=== PATIENT | female | born 1960 | race Caucasian/White ===

== ENCOUNTER 2019-07-16 16:00 | Inpatient (IN) ==
[2019-07-16 20:07] LABS: Basophils # (Auto) 0 K/mcL (0.0-0.3); Basophils % (Auto) 0.4 % (0.0-2.0); Eosinophils # (Auto) 0.2 K/mcL (0.0-0.7); Eosinophils % (Auto) 4.2 % (0.0-7.0); Granulocytes % (Auto) 53.3 % (38.0-78.0); Hematocrit 35.5 % (36.0-48.0); Hemoglobin 11.8 g/dL (12.0-15.0); Lymphocytes # (Auto) 1.8 K/mcL (1.5-4.8); Lymphocytes % (Auto) 31.7 % (15.5-49.0); Mean Cell Volume 93.3 fL (80.0-100.0); Mean Corpuscular HGB Conc 33.2 g/dL (31.0-36.0); Mean Platelet Volume 7.4 fL (7.4-10.4); Monocytes # (Auto) 0.6 K/mcL (0.1-0.9); Monocytes % (Auto) 10.4 % (1.0-12.0); Platelet Count 205 K/mcL (140-440); RBC 3.81 M/mcL (4.00-5.20); Red Cell Distribution Width 15.4 % (11.5-14.5); WBC 5.7 K/mcL (4.5-11.0)
[2019-07-16 20:09] LABS: Appearance,Urine CLEAR; Bacteria,Urine 0 /hpf (0); Bilirubin,Urine NEG (NEG); Color,Urine YELLOW; Culture Indicated,Urine YES; Glucose,Urine (UA) NEGATIVE (NEG); Ketones,Urine NEG (NEG); Leukocyte Esterase,Urine 500 /uL (NEG); Nitrate,Urine NEG (NEG); Protein,Urine NEG (NEG); Specific Gravity,Urine 1.021 (1.000-1.035); Urine Blood NEG mg/dL (<0.03); Urine Hyaline Cast 1 /lpf (0-2); Urine RBC 2 /hpf (0-1); Urine Squamous Epithelial Cell 4 /hpf (0-4); Urine Transitional Epi Cells 1 /hpf (0-2); Urine WBC 38 /hpf (0-4); Urobilinogen,Urine NEG (NEG)
[2019-07-16 20:26] LABS: Blood Urea Nitrogen 22 mg/dl (8-23); Calcium 9.6 mg/dl (8.6-10.4); Carbon Dioxide 25 mmol/L (22-30); Chloride 99 mmol/L (96-108); Glomerular Filtration Rate 69; Glucose 157 mg/dL (70-105)
[2019-07-16 20:29] LABS: Estimated Average Glucose(eAG) 171 mg/dL; Hemoglobin A1C 7.6 % HGB (4.0-6.0)
[2019-07-16 20:34] LABS: Prothrombin Time 12.7 sec (11.9-14.5)
[2019-07-28] MEDS ORDERED: oxyCODONE 10 MG TAB.ER.12H PO SCH (06:00)
[2019-07-28] MEDS ORDERED: ceFAZolin 2 GM in DEXTROSE 5% IN WATER 50 ML IV SCH (06:00)
[2019-07-28] MEDS ORDERED: CELECOXIB 200 MG CAPSULE PO SCH (06:00)
[2019-07-28] MEDS ORDERED: PREGABALIN 75 MG CAPSULE PO SCH (06:00)
[2019-07-28] MEDS ORDERED: ACETAMINOPHEN 500 MG TABLET PO SCH (06:00)
[2019-07-28] MEDS ORDERED: IPRATROPIUM/ALBUTEROL 3 ML AMPUL.NEB NEB PRN ×2 (06:30→10:28)
[2019-07-28] MEDS ORDERED: SCOPOLAMINE 1 PATCH PATCH TOPICAL PRN (06:30)
[2019-07-28] MEDS ORDERED: MIDAZOLAM 5 MG/5 ML VIAL IV ONE (09:20)
[2019-07-28] MEDS ORDERED: METOPROLOL TARTRATE 5 MG/5 ML VIAL IV ONE (09:20)
[2019-07-28] MEDS ORDERED: ONDANSETRON 4 MG/2 ML VIAL IV ONE (09:20)
[2019-07-28] MEDS ORDERED: ROPIVACAINE HCL/PF 30 ML VIAL IJ ONE (09:20)
[2019-07-28] MEDS ORDERED: LIDOCAINE HCL/PF 100 MG/5 ML SYRINGE IV ONE (09:20)
[2019-07-28] MEDS ORDERED: fentaNYL 100 MCG/2 ML VIAL IV ONE (09:20)
[2019-07-28] MEDS ORDERED: FLUMAZENIL 0.1 MG/ML ML IV ONE (09:20)
[2019-07-28] MEDS ORDERED: PROPOFOL 200 MG/20 ML VIAL IV ONE (09:20)
[2019-07-28] MEDS ORDERED: GLYCOPYRROLATE 0.2 MG/ML VIAL IV ONE (09:20)
[2019-07-28] MEDS ORDERED: DEXAMETHASONE 10 MG/ML VIAL IV ONE (09:20)
[2019-07-28] MEDS ORDERED: ROCURONIUM 10 MG/ML ML IV ONE (09:20)
[2019-07-28] MEDS ORDERED: TRANEXAMIC ACID 1,000 MG/10 ML VIAL IV ONE ×2 (09:20→10:30)
[2019-07-28] MEDS ORDERED: KETAMINE 100 MG/ML ML IV ONE (09:20)
[2019-07-28] MEDS ORDERED: METHOCARBAMOL 1,000 MG/10 ML VIAL IV PRN (10:28)
[2019-07-28] MEDS ORDERED: MEPERIDINE 25 MG/ML SYRINGE IV PRN (10:28)
[2019-07-28] MEDS ORDERED: ONDANSETRON 4 MG/2 ML VIAL IV PRN ×2 (10:28→10:30)
[2019-07-28] MEDS ORDERED: fentaNYL 100 MCG/2 ML VIAL IV PRN (10:28)
[2019-07-28] MEDS ORDERED: ACETAMINOPHEN 325 MG TABLET PO PRN (10:30)
[2019-07-28] MEDS ORDERED: FLEETS ADULT ENEMA PR PRN (10:30)
[2019-07-28] MEDS ORDERED: KETOROLAC 15 MG/ML VIAL IV PRN (10:30)
[2019-07-28] MEDS ORDERED: MAGNESIUM HYDROXIDE 30 ML ORAL.SUSP PO PRN (10:30)
[2019-07-28] MEDS ORDERED: BENZOCAINE/MENTHOL 1 LOZENGE PO PRN (10:30)
[2019-07-28] MEDS ORDERED: HYDROmorphone 2 MG/ML VIAL IV PRN (10:30)
[2019-07-28] MEDS ORDERED: TEMAZEPAM 15 MG CAPSULE PO PRN (10:30)
[2019-07-28] MEDS ORDERED: POLYETHYLENE GLYCOL 3350 17 GM PACKET PO PRN (10:30)
[2019-07-28] MEDS ORDERED: LACTATED RINGERS 1,000 ML IV SCH (10:30)
[2019-07-28] MEDS ORDERED: BISACODYL 10 MG SUPP.RECT PR PRN (10:30)
[2019-07-28] MEDS ORDERED: METHOCARBAMOL 500 MG TABLET PO PRN (10:34)
[2019-07-28] MEDS ORDERED: LORazepam 0.5 MG TABLET PO PRN (10:34)
--- NOTE | 2019-07-28 10:37 | Brief Operative Note ---
Date of procedure: 07/28/19 Pre-op diagnosis: Right shoulder severe djd Post-op diagnosis: same Procedure: Right reverse tsa Grafts/Implants: Yes Anesthesia: MIRNA Surgeon: Amadeo Prieto Bath Attendant: Royal Barksdale Estimated blood loss (cc): 50 Tourniquet Time (Minutes): 0 Specimens Removed/Pathology: none sent Condition: stable Disposition: PACU
--- NOTE | 2019-07-28 10:41 | Operative Note ---
DATE OF OPERATION: 07/28/2019 PREOPERATIVE DIAGNOSIS: Right shoulder rotator cuff arthropathy. POSTOPERATIVE DIAGNOSIS: Right shoulder rotator cuff arthropathy. PROCEDURE: Right reverse total shoulder. SURGEON: Amadeo Prieto MD EVP GENERAL COUNSEL: oRyal Barksdale PA-C. This provider's expertise and technical skill were required throughout the case. The PA assisted with preoperative coordination, intraoperative retraction, wound closure, dressing and splint application, as well as postoperative documentation and care coordination. ANESTHESIA: General LMA anesthesia. COMPLICATIONS: None. Bone quality is poor. IMPLANTS: Size 32 mm glenosphere, metaglene with screws per nurse's note, 7 mm stem with a standard thickness polyethylene. DESCRIPTION OF PROCEDURE: The patient was brought to the operating room and put to sleep with general LMA anesthesia. Once asleep, the patient had the right shoulder sterilely prepped and draped in the usual sterile fashion. Once this was done, we then confirmed this as the operative site by initials, consent form and x-rays. Preop antibiotics and tranexamic had been given. We placed Ioban over the skin and made a deltopectoral approach to the right shoulder. This showed severe rotator cuff arthropathy with severe arthritis in the glenohumeral joint, as well as a torn supraspinatus and into the teres minor. At this point, we then subluxed the humeral head after releasing the remnants of the subscap. We made our neck cut at 130 degrees using the Clever Cloud guide. Once done, we then subluxed the head posteriorly and then reamed the center of rotation in the glenoid and removed the labrum and the remnants of the biceps tendon were released. We then placed the metaglene which was a central screw of 24 mm, a 16 peripheral screw, 32 peripheral screw and a 28 mm peripheral screw with excellent fixation. A 32 mm glenosphere with 2 mm of offset was placed. Once done, we then tapped this into place and prepared the humerus. The humerus was then prepared by broaching up to the size 7, trialing a size 7 standard poly. This seemed to fit very nicely with full range of motion and stability. We irrigated thoroughly and cemented the distal tip of the [address] with antibiotic impregnated cement and then a standard thickness poly. This seemed to fit very nicely. We irrigated thoroughly and then reduced the humeral head. We then controlled any bleeding, which there was not a lot of bleeding, less than 50 mL total. We then closed the interval with #1 Stratafix, closed the skin with 2-0 Vicryl and adhesive closure. The patient was fitted and given a DonJoy sling at the end of the case. There was no complication. Sterile bandage was applied. RBH:alice Job ID: [id number] Doc ID: [id number] Amadeo Prieto MD
[2019-07-28] MEDS ORDERED: GENTAMICIN SULFATE 800 MG/20 ML VIAL IR ONE (10:44)
[2019-07-28] MEDS ORDERED: NALOXONE HCL 0.4 MG/ML VIAL IV ONE (11:39)
[2019-07-28] MEDS ORDERED: NALOXONE HCL 0.4 MG/ML VIAL ONE (11:39)
--- NOTE | 2019-07-28 11:48 | XRay Report ---
CLINICAL INFORMATION: Post-OP Total Shoulder COMPARISON: Preoperative films 12/23/2018 FINDINGS: Right total shoulder prostheses is anatomically aligned. No osseous abnormality. Soft tissue swelling seen as expected IMPRESSION: Negative Interpreted and Authenticated by: Lambert Simon 07/28/19
[2019-07-28] MEDS: LACTATED RINGERS 1,000 ML IV SCH ×3 (12:29→23:29)
[2019-07-28] MEDS: metFORMIN 500 MG TABLET PO SCH ×2 (14:14→17:27)
[2019-07-28] MEDS: 0.9 % SODIUM CHLORIDE 10 ML SYRINGE IV SCH ×2 (14:18→21:05)
[2019-07-28] MEDS: ceFAZolin 1 GM VIAL IV SCH (17:27)
[2019-07-28] MEDS: HYDROcodone/APAP 10/325MG TABLET PO PRN (19:23)
[2019-07-28] MEDS ORDERED: SENNOSIDES 1 TABLET PO SCH (21:00)
[2019-07-28] MEDS ORDERED: SIMVASTATIN 40 MG TABLET PO SCH (21:00)
[2019-07-28] MEDS ORDERED: AMITRIPTYLINE 10 MG TABLET PO SCH (21:00)
[2019-07-28] MEDS ORDERED: MONTELUKAST 10 MG TABLET PO SCH (21:00)
[2019-07-28] MEDS ORDERED: Anastrozole [Arimidex] 1 mg Tab PO SCH (21:00)
[2019-07-28] MEDS: DOCUSATE SODIUM 100 MG CAPSULE PO SCH (21:04)
[2019-07-28] MEDS: ALPHA LIPOIC ACID 300 MG PO SCH (21:05)
[2019-07-29] MEDS: HYDROcodone/APAP 10/325MG TABLET PO PRN ×3 (00:10→10:12)
[2019-07-29] MEDS: ceFAZolin 1 GM VIAL IV SCH (01:40)
[2019-07-29] MEDS: 0.9 % SODIUM CHLORIDE 10 ML SYRINGE IV SCH (05:24)
[2019-07-29] MEDS: LACTATED RINGERS 1,000 ML IV SCH (06:44)
[2019-07-29] MEDS ORDERED: OMEPRAZOLE 20 MG CAPSULE PO SCH (07:30)
[2019-07-29] MEDS: HYDROCHLOROTHIAZIDE 25 MG TABLET PO SCH ×2 (07:41→11:13)
[2019-07-29] MEDS: metFORMIN 500 MG TABLET PO SCH (07:41)
[2019-07-29] MEDS: DOCUSATE SODIUM 100 MG CAPSULE PO SCH (07:42)
--- NOTE | 2019-07-29 07:42 | Orthopedic Progress Note ---
Subjective Patient information: Note initiated : 07/29/19 at 7:42 am Service Date, if different from initiated Date: [] Patient: Jacquelin Benoit 59 y/o F admitted on 07/28/19 for Right Reverse Total Shoulder Arthroplasty . Chief Complaint: [Pt is stable this morning on post operative day 1 without any significant concerns or complaints. Patients vital signs have remained stable. Patients dressing is dry and is grossly intact from a neur ovascular and motor standpoint. Patients 10 point ROS is otherwise negative. ] Objective Vital signs: Vital Signs Temp Pulse Resp BP Pulse Ox 07/29/19 04:47 97.5 F 91 H 18 124/73 92 07/28/19 23:38 97.9 F 20 101/71 91 07/28/19 19:22 97.8 F 90 20 116/70 94 07/28/19 16:00 97.8 F 73 18 111/73 95 07/28/19 14:20 97.8 F 80 18 158/80 97 07/28/19 13:20 81 16 169/83 97 07/28/19 13:05 76 16 164/82 96 07/28/19 12:50 83 16 162/99 94 07/28/19 12:35 81 16 155/82 94 07/28/19 12:20 97.6 F 84 16 147/79 94 07/28/19 12:05 98.2 F 90 19 123/73 91 07/28/19 12:02 88 17 136/82 90 07/28/19 11:52 88 18 125/77 90 07/28/19 11:42 84 16 111/71 96 07/28/19 11:32 88 15 116/63 96 07/28/19 11:22 79 14 110/62 98 07/28/19 11:12 78 14 105/61 99 07/28/19 11:07 79 15 98/65 100 07/28/19 11:02 84 15 122/83 100 07/28/19 10:57 97.1 F 85 14 107/65 98 07/28/19 07:52 98.0 F 88 16 128/77 100 Intake and Output 07/28/19 07/29/19 07/29/19 21:59 05:59 13:59 Intake Total 1620 1540 Output Total 2150 650 Balance -530 890 Intake: IV 420 1000 Lactated Ringers 1,000 ml @ 724 284 5152 mls/hr IV .Q10H RYANN Rx#: [id number] Oral 1200 540 Output: Void Amount 2150 650 Other: Meal Dinner Nourishment/Supplement Percent of Meal Consumed 100% 100% Feeding Ability Assist with Tray Set Up Independent Urine Appearance Clear Clear Urine Color Bright Yellow Bright Yellow Urine Odor Normal Normal Weight 178 lb 4.8 oz Intake & Output: Intake & Output 07/28/19 07/29/19 07/29/19 21:59 05:59 13:59 Intake Total 1620 1540 Output Total 2150 650 Balance -530 890 Weight 178 lb 4.8 oz Intake: IV 420 1000 Lactated Ringers 1,000 ml @ 817 808 5804 mls/hr IV .Q10H RYANN Rx#: [id number] Oral 1200 540 Output: Void Amount 2150 650 Other: Meal Dinner Nourishment/Supplement Percent of Meal Consumed 100% 100% Feeding Ability Assist with Tray Set Up Independent Urine Appearance Clear Clear Urine Color Bright Yellow Bright Yellow Urine Odor Normal Normal Incision: Yes healing Incision clean and dry: Yes Dressing: Yes clean Weight bearing status: full Neurological exam IM: Yes motor sensory intact, Yes neurovascular intact Extremities exam IM: Yes Foot pink and warm, Yes neurovascular intact - Labs CBC & BMP: 07/16/19 17:11 07/16/19 17:11 Labs: Orthopedic Labs 07/16/19 17:10 PT 12.7 INR 1.0 APTT 29 07/16/19 17:11 Hgb 11.8 L Hct 35.5 L Assessment and Plan (1) History of reverse total replacement of right shoulder joint The patient has been educated regarding dressing care, Physical Therapy recommendations, home exercises, restrictions, and follow up appointments. The patient has had all necessary DME prescribed. The patient has remained relatively stable during their hospital course. Status: Acute
--- NOTE | 2019-07-29 07:45 | Discharge Summary ---
Ortho Discharge - TSA - Patient Instructions Diet: Regular Diet Activity: activity as tolerated, weight bearing as tolerated Total Shoulder Protocol: Leave immobilizer in place except for bathing and ROM. Abduction pillow. Continue to wear sling until seen by physician. Codman Pendulum : These exercises use momentum produced by your body to move your shoulder joint. Bend your knees and shift your weight to your front leg, then back, allowing your arm to swing in the same directions. Using the same technique, alternately shift your weight between your right and left legs, allowing your arm to swing from side to side. These exercises are also performed in counterclockwise and clockwise circular motions. Typically these exercises are performed several times per day, for a set number repetitions or minutes, such as 20 times in a row or 5 minutes at a time. Dressing Care: May shower in 2 days - Problem Maintenance (1) History of reverse total replacement of right shoulder joint Status: Acute - Follow Up Plan Follow Up Appointments: Royal Barksdale PA-C [Physician Ground Support Equipment Mechanic] - Disposition: Home, Self-Care Prognosis: Good Rehab Potential: Good I certify that the patient requires SNF services: No Overall status at discharge: patient is progressing back to baseline - Orders For Discharge Prescriptions: Docusate Sodium [Colace] 100 mg PO BID #60 cap Transmission Status: Pending to [facility] HYDROcodone/APAP 10/325MG [[place] 10-325Mg] 1 - 2 tab PO Q4HP PRN #75 tab PRN Reason: Pain Level 3-6 Prescription Printed
[2019-07-29] MEDS ORDERED: FOLIC ACID 1 MG TABLET PO SCH (09:00)
[2019-07-29] MEDS ORDERED: LOSARTAN 50 MG TABLET PO SCH (09:00)
[2019-07-29] MEDS ORDERED: VITAMIN B COMPLEX 1 CAPSULE PO SCH (09:00)
[2019-07-29] MEDS ORDERED: DULoxetine 30 MG CAPSULE PO SCH (09:00)
[2019-07-29] MEDS: ALPHA LIPOIC ACID 300 MG PO SCH (10:14)
== END 2019-07-29 11:25 | disposition home or self-care (01) | DRG 483 ==
LOC: MEDSUR 07-28 07:08
PROVIDERS: ADMIT Orthopaedic Surgery; ATTEND Orthopaedic Surgery

== ENCOUNTER 2020-12-30 22:08 | Inpatient (IN) ==
[2020-12-30] MEDS ORDERED: IOPAMIDOL 100 ML BOTTLE IV ONE (22:09)
[2020-12-30] MEDS ORDERED: KETOROLAC 30 MG/ML VIAL IV ONE (22:37)
[2020-12-30] MEDS ORDERED: ONDANSETRON 4 MG/2 ML VIAL IV ONE (22:37)
--- NOTE | 2020-12-30 22:41 | Emergency Department Note ---
Abdominal Pain HPI General Chief Complaint: Flank Pain Stated Complaint: Flank Pain Time Seen by Provider: 12/30/20 22:34 Source: patient Mode of arrival: ambulatory Limitations: no limitations History of Present Illness HPI Narrative: Narrative: Presents to room E2 for evaluation of right flank and right upper quadrant pain. Patient reports that she had sudden onset of pain about 1999 while sitting on the sofa. She states that she had eaten meatloaf with cheese and hamburger approximately 30 minutes prior to arrival. She reports associated nausea with vomiting. No change in urination, no change in bowel habits. She denies fevers or chills. Symptoms are constant. She denies any exacerbating or alleviating factors. Related Data Home Medications Medication Instructions Recorded Confirmed blood sugar diagnostic 02/10/15 12/09/20 lancets 02/10/15 12/09/20 alpha lipoic acid 50 mg capsule 300 mg PO BID cap 08/02/17 12/09/20 amitriptyline 10 mg tablet 10 mg PO HS tab 08/02/17 12/09/20 vitamin B complex 1 tab PO QDAY 08/02/17 12/09/20 duloxetine 60 mg capsule,delayed 60 mg PO DAILY cap 07/19/18 12/09/20 release anastrozole 1 mg PO HS 12/20/18 12/09/20 lorazepam 0.5 mg PO BIDP PRN 07/16/19 12/09/20 cholecalciferol (vitamin D3) 25 25 mcg PO BID cap 11/26/19 12/09/20 mcg (1,000 unit) capsule dha-phosphatidylserine See Rx Instructions PO QDAY 11/26/19 12/09/20 magnesium oxide 400 mg (241.3 mg 400 mg PO QDAY 11/26/19 12/09/20 magnesium) tablet apple cider vinegar 300 mg tablet 300 mg PO BID tab 07/02/20 12/09/20 vitamin E 400 unit capsule 400 unit PO BID 07/27/20 12/09/20 Liver tone 300 mg PO QDAY 08/17/20 12/09/20 cinnamon bark 500 mg capsule 500 mg PO QDAY 11/01/20 12/09/20 Previous Rx's Medication Instructions Recorded albuterol sulfate 90 mcg/actuation 2 puff INHALATION Q6H PRN #18 g 11/11/19 aerosol inhaler hydrochlorothiazide 25 mg tablet 25 mg PO QDAY #90 tab 04/06/20 methocarbamol 500 mg tablet 500 mg PO TID PRN #30 tab 07/02/20 montelukast 10 mg tablet 10 mg PO QHS #90 tab 08/31/20 phenylephrine 0.25 %-pramoxine 1 1 applic MD BID #51 g 11/11/20 %-glycerin-wh.petrolatum rectal cream rosuvastatin 10 mg tablet 10 mg PO HS #60 tab 11/17/20 nitrofurantoin 100 mg PO Q12H 5 Days #10 cap 11/24/20 monohydrate/macrocrystals 100 mg capsule metformin 500 mg tablet 1,000 mg PO BID 90 Days #360 tab 11/25/20 losartan 50 mg tablet 50 mg PO QDAY #90 tab 12/01/20 omeprazole 20 mg capsule,delayed 20 mg PO QDAY #90 cap 12/23/20 release Allergies Allergy/AdvReac Type Severity Reaction Status Date / Time diphenhydramine Allergy Mild Hives Verified 12/30/20 22:11 [From Benadryl] Sulfa (Sulfonamide Allergy Mild Rash Verified 12/30/20 22:11 Antibiotics) midazolam [From Versed] AdvReac Severe Other Verified 12/30/20 22:11 Review of Systems ROS ROS Narrative: Narrative: All systems ED: reviewed and negative except as stated. [facility] Narrative Patient History Narrative: Narrative: Medical/Surgical/Family History All Active Problems (Updated 12/31/20 @ 04:58 by Fazal Clifford MD) Acute flank pain (Acute) UTI (urinary tract infection) (Acute) Ureterolithiasis (Acute) Pancreatitis (Acute) Severe sepsis (Acute) Right foot strain (Acute) Right foot injury (Acute) Dysuria (Acute) Breast disorder (Chronic) Colonic polyp (Chronic) Degeneration of cervical disc without myelopathy (Chronic) Type 2 diabetes mellitus (Chronic ~2010) Gastroesophageal reflux (Chronic) Hyperlipidemia (Chronic) Hypertension, essential (Chronic) Irritable bowel syndrome (Chronic) Menopausal and postmenopausal disorder (Chronic) Osteopenia (Chronic) Spondylosis of cervical spine (Chronic) Vitamin D deficiency (Chronic) CKD (chronic kidney disease), stage III (Chronic) Hypertensive renal disease (Chronic) Calculus of kidney (Chronic) Fibromyalgia (Chronic) Erosive osteoarthritis (Chronic) Dermatitis (Chronic) Chondrocalcinosis (Chronic) Conjunctivitis, left eye (Acute) Chest wall pain (Acute) Right shoulder pain (Acute) Shoulder strain (Acute) 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) Lower extremity edema (Acute) Chronic kidney disease (CKD) stage G2/A1, mildly decreased glomerular filtration rate (GFR) between 60-89 mL/min/1.73 square meter and albuminuria creatinine ratio less than 30 mg/g (Chronic) Right wrist pain (Acute) Strain of wrist, right (Acute) Mild obstructive sleep apnea (Acute) Low back pain (Acute) Sleep disorder, unspecified (Chronic) Obstructive sleep apnea (Chronic) Transaminitis (Acute) CKD (chronic kidney disease) (Acute) Acute adjustment disorder with anxiety (Acute) CKD stage G3a/A1, GFR 45-59 and albumin creatinine ratio <30 mg/g (Acute) Medical History Acute adjustment disorder with anxiety Breast cancer s/p lumpectomy and radiation therapy Breast disorder FCBC Calculus of kidney Chondrocalcinosis Of multiple sites, chronic CKD (chronic kidney disease) CKD (chronic kidney disease), stage III Doubt DM due to lack of proteinuria Same reasons to doubt GN associated with rheumatalogic issue or malignancy HTN is likely and BP is well controlled Closed fracture of toe Colonic polyp Degeneration of cervical disc without myelopathy Dermatitis Dysuria Erosive osteoarthritis Chronic Fibromyalgia Chronic Gastroesophageal reflux Hyperlipidemia Hypertension, essential diagnosed in her 30s Hypertensive renal disease Irritable bowel syndrome Knee sprain Low back pain Menopausal and postmenopausal disorder Mild obstructive sleep apnea Obstructive sleep apnea Osteopenia Right foot injury Right foot strain Sleep disorder, unspecified Spondylosis of cervical spine Lumbar Transaminitis Type 2 diabetes mellitus (~2010) Vitamin D deficiency Surgical History H/O joint replacement hand- R [facility] H/O lumpectomy History of arthroscopy of right knee History of breast biopsy History of X3 History of carpal tunnel release R History of hysterectomy L SO History of right knee joint replacement Status post lumbar spinal fusion Family History Father , at 80y Atherosclerosis of coronary artery Diabetes mellitus Essential hypertension affecting in second trimester, antepartum Mother Essential hypertension Cerebrovascular accident Unknown Hyperlipidemia Sister Renal stones Social History Smoking Status: Never smoker Alcohol Intake Frequency: holiday/special occasion only Substance Use: does not use Exam Narrative Narrative: Narrative: General Limitations: no limitations General appearance: Present alert and in no apparent distress Head Head: Present atraumatic, normocephalic and normal inspection Eye Eye: Present normal appearance and EOMI; Absent conjunctival injection ENT ENT: Present normal exam and mucous membranes moist Neck Neck: Present normal inspection and trachea midline Respiratory Respiratory: Present normal lung sounds bilaterally; Absent respiratory distress Cardiovascular Cardiovascular: Present regular rate, normal rhythm and normal heart sounds Adbominal Abdominal: Present soft and tenderness (Moderate tenderness to palpation primarily in the right upper quadrant extending into the right flank.); Absent distention, guarding and rebound Extremities Extremities: Present normal inspection; Absent tenderness Back Back: Present normal inspection and CVA tenderness (R); Absent tenderness and CVA tenderness (L) Neurological Neurological: Present alert, oriented X3 and CN II-XII intact; Absent motor sensory deficit Psychiatric Psychiatric: Present normal affect and normal mood Skin Skin: Present warm (WNL) and dry; Absent rash Course Vital Signs Vital signs: Vital Signs Temperature 98.1 F 12/30/20 22:08 Pulse Rate 78 12/30/20 22:08 Respiratory Rate 18 12/30/20 22:08 Blood Pressure 190/80 12/30/20 22:08 Pulse Oximetry (%) 100 12/30/20 22:08 Temperature 98.1 F 12/30/20 22:08 Pulse Rate 111 H 12/31/20 02:01 Respiratory Rate 18 12/30/20 22:08 Blood Pressure 180/98 12/31/20 02:01 Pulse Oximetry (%) 97 12/31/20 02:01 [facility] Narrative Medical decision making narrative: Narrative: Patient presents for evaluation of acute onset of pain primarily in the right upper quadrant but also extending into the right flank. This came on after eating meat loaf and originally I consider the possibility this may represent acute biliary colic. The patient did not report any symptoms of fever or suggestion of infection. Her white blood cell count is normal but she is noted to be tachycardic. Her symptoms were treated with IV analgesics and antiemetics as well as IV fluid initially. Her BUN and creatinine is slightly elevated at 29 and 1.3. The patient's lipase is also slightly elevated at 131. I did attempt to obtain an ultrasound of the gallbladder however the services are not available at this time of the night. CT scan was also obtained and showed no evidence of biliary disease. There is noted to be right-sided hydroureteronephrosis with an obstructing 3 x 5 mm proximal ureteral stone. The patient's urinalysis is consistent with UTI. As t he patient's creatinine is slightly elevated with infection and ureteral stone I was concerned the patient may have impending sepsis. Blood cultures and lactic acid were obtained. Patient was given a dose of IV Rocephin. The patient's lactic acid has come back at 3.6 consistent with severe sepsis. I have made multiple attempts to contact Dr. Ortiz the on-call urologist initially without success. I did engage the house mover to assist in contacting Dr. Ortiz I did speak with him at approximately 0445. He is asked that I engage the hospitalist, Dr. Field in the patient's care. Lab Data Lab results reviewed: Yes I reviewed the patient's lab results. Result diagrams: 12/30/20 22:37 12/30/20 22:37 Labs: Lab Results 12/30/20 12/30/20 12/30/20 Range/Units 22:37 22:37 23:50 WBC 9.7 (4.5-11.0) K/mcL RBC 4.05 (4.00-5.20) M/mcL Hgb 11.5 L (12.0-15.0) g/dL Hct 35.1 L (36.0-48.0) % MCV 86.7 (80.0-100.0) fL MCH 28.4 (26.0-34.0) pg MCHC 32.8 (31.0-36.0) g/dL RDW 13.8 (11.5-14.5) % Plt Count 214 (140-440) K/mcL MPV 9.7 (7.4-10.4) fL Neut % (Auto) 70.7 (38.0-78.0) % Lymph % (Auto) 21.1 (15.0-49.0) % Granite % (Auto) 5.2 (1.0-12.0) % Eos % (Auto) 2.8 (0.0-7.0) % Baso % (Auto) 0.2 (0.0-2.0) % Lymph # (Auto) 2.04 (1.50-4.80) K/mcL Granite # (Auto) 0.50 (0.10-0.90) K/mcL Eos # (Auto) 0.27 (0.00-0.70) K/mcL Baso # (Auto) 0.02 (0.00-0.20) K/mcL Absolute Neutrophils 6.85 (1.80-8.00) K/mcL Sodium 134 (133-145) mmol/L Potassium 4.2 (3.3-5.1) mmol/L Chloride 96 (96-108) mmol/L Carbon Dioxide 25 (22-30) mmol/L Anion Gap 13.0 (8.0-16.0) BUN 29 H (8-23) mg/dL Creatinine 1.3 H (0.6-1.1) mg/dL GFR Calculation 44 Glucose 197 H (70-105) mg/dL Calcium 9.9 (8.6-10.4) mg/dL Total Bilirubin 0.5 (0.1-1.0) mg/dL AST 21 (<32) U/L ALT 24 (<40) U/L Alkaline Phosphatase 104 (39-117) U/L Total Protein 7.0 (5.9-8.4) gm/dL Albumin 4.2 (3.2-5.2) gm/dL Globulin 2.8 (2.2-3.7) gm/dL Albumin/Globulin Ratio 1.5 (1.0-2.3) Lipase 131 H (7-60) U/L Urine Color Yellow Urine Appearance Cloudy A (Clear) Urine pH 6.0 (5.0-9.0) Ur Specific [place] 1.017 (1.000-1.035) Urine Protein 30 A (Negative) mg/dL Urine Glucose (UA) Negative (Negative) mg/dL Urine Ketones Negative (Negative) mg/dL Urine Occult Blood 0.20 (Negative) mg/dL Urine Nitrate Pos A (Negative) Urine Bilirubin Negative (Negative) mg/dL Urine Urobilinogen Negative mg/dL Ur Leukocyte Esterase 250 A (Negative) /ug Urine RBC 108 H (0-3) /hpf Urine WBC > 182 H (0-4) /hpf Ur Squamous Epith Cells 1 (0-4) /hpf Ur Transition Epith Cell < 1 (0-2) /hpf Urine Bacteria Few A (0) /hpf Urine Mucus Few A (None) /hpf Ur Culture Indicated? yes Radiology Data Radiology results reviewed: Yes I reviewed the patient's radiology results. EKG Data EKG #1: EKG attestation: Yes I reviewed and interpreted this EKG., Yes There are no EKG findings of acute coronary syndrome and Yes This EKG will be read by centrifugal supervisor EKG results narrative: Sinus tachycardia with a rate of 125, right bundle branch block, no ischemic ST changes, no ectopy Rhythm Strip Data Rhythm Strip Rate: 125 Interpretation: Sinus tachycardia Pulse Oximetry Data Pulse Ox %: 94 Interpretation: Room air, normal CC TIME Critical Care Time Critical Care Time: Yes Total Critical Care Time: 30 Attestation: Approximately 30 minutes of critical care time was used in order to assess and manage the high probability of imminent or life threatening deterioration which required my highest level of preparedness and interventions with frequent patien t assessments. This time is excluding time spent on separately billable procedures. Discharge Plan Patient/Caregiver Discharge Instructions Pt seen by TRUCK MECHANIC APPRENTICE/PA only: No Clinical Impression: Acute flank pain, UTI (urinary tract infection), Ureterolithiasis, Pancreatitis, Severe sepsis Patient Disposition: Xfer As Inpt ([facility]) Follow up with: Pancho Bal MD [Primary Care Provider] - Prescriptions: No Action albuterol sulfate [Ventolin HFA] 90 mcg/actuation HFA aerosol inhaler 2 puff inhalation Q6H PRN (Reason: dyspnea) Qty: 18 RF: 5 hydrochlorothiazide 25 mg tablet 25 mg PO QDAY Qty: 90 RF: 1 montelukast [Singulair] 10 mg tablet 10 mg PO QHS Qty: 90 RF: 1 rosuvastatin [Crestor] 10 mg tablet 10 mg PO HS Qty: 60 RF: 0 metformin 500 mg tablet 1,000 mg PO BID 90 Days Qty: 360 RF: 1 losartan [Cozaar] 50 mg tablet 50 mg PO QDAY Qty: 90 RF: 1 omeprazole 20 mg capsule,delayed release(DR/EC) 20 mg PO QDAY Qty: 90 RF: 1 (DME) blood sugar diagnostic strip See Dose Instructions .ROUTE .MEDSUPPLY RF: 0 (DME) lancets misc See Dose Instructions .ROUTE .MEDSUPPLY RF: 0 duloxetine 60 mg capsule,delayed release(DR/EC) 60 mg PO DAILY RF: 0 cholecalciferol (vitamin D3) 25 mcg (1,000 unit) capsule 25 mcg PO BID RF: 0 magnesium oxide 400 mg (241.3 mg magnesium) tablet 400 mg PO QDAY RF: 0 dha-phosphatidylserine See Rx Instructions PO QDAY RF: 0 Liver tone 300 mg 300 mg PO QDAY RF: 0 apple cider vinegar 300 mg tablet 300 mg PO BID RF: 0 methocarbamol 500 mg tablet 500 mg PO TID PRN (Reason: muscle pain/tightness) Qty: 30 RF: 0 Preparation H Maximum Strength 0.25-1 % cream 1 applic MD BID Qty: 51 RF: 1 nitrofurantoin monohyd/m-cryst [Macrobid] 100 mg capsule 100 mg PO Q12H 5 Days Qty: 10 RF: 0 alpha lipoic acid 50 mg capsule 300 mg PO BID RF: 0 amitriptyline 10 mg tablet 10 mg PO HS RF: 0 vitamin B complex tablet 1 tab PO QDAY RF: 0 cinnamon bark 500 mg capsule 500 mg PO QDAY RF: 0 vitamin E 400 unit capsule 400 unit PO BID RF: 0 anastrozole 1 MG tablet 1 mg PO HS RF: 0 lorazepam 1 MG tablet 0.5 mg PO BIDP PRN (Reason: anxiety) RF: 0
[2020-12-30 23:48] LABS: Basophils # (Auto) 0.02 K/mcL (0.00-0.20); Basophils % (Auto) 0.2 % (0.0-2.0); Eosinophils # (Auto) 0.27 K/mcL (0.00-0.70); Eosinophils % (Auto) 2.8 % (0.0-7.0); Hematocrit 35.1 % (36.0-48.0); Hemoglobin 11.5 g/dL (12.0-15.0); Lymphocytes # (Auto) 2.04 K/mcL (1.50-4.80); Lymphocytes % (Auto) 21.1 % (15.0-49.0); Mean Cell Volume 86.7 fL (80.0-100.0); Mean Corpuscular HGB Conc 32.8 g/dL (31.0-36.0); Mean Platelet Volume 9.7 fL (7.4-10.4); Monocytes % (Auto) 5.2 % (1.0-12.0); Neutrophils % (Auto) 70.7 % (38.0-78.0); Platelet Count 214 K/mcL (140-440); RBC 4.05 M/mcL (4.00-5.20); Red Cell Distribution Width 13.8 % (11.5-14.5); WBC 9.7 K/mcL (4.5-11.0)
[2020-12-31 00:05] LABS: ALT/SGPT 24 U/L (<40); AST/SGOT 21 U/L (<32); Albumin 4.2 gm/dL (3.2-5.2); Albumin/Globulin Ratio 1.5 (1.0-2.3); Alkaline Phosphatase 104 U/L (39-117); Bilirubin,Total 0.5 mg/dL (0.1-1.0); Blood Urea Nitrogen 29 mg/dL (8-23); Calcium 9.9 mg/dL (8.6-10.4); Carbon Dioxide 25 mmol/L (22-30); Chloride 96 mmol/L (96-108); Globulin 2.8 gm/dL (2.2-3.7); Glomerular Filtration Rate 44; Glucose 197 mg/dL (70-105)
[2020-12-31] MEDS ORDERED: 0.9 % SODIUM CHLORIDE 1,000 ML IV ONE ×3 (00:39→08:12)
[2020-12-31 01:23] LABS: Appearance,Urine CLOUDY (Clear); Bacteria,Urine FEW /hpf (0); Bilirubin,Urine Negative (Negative); Color,Urine YELLOW; Culture Indicated,Urine yes; Glucose,Urine (UA) Negative (Negative); Ketones,Urine Negative (Negative); Leukocyte Esterase,Urine 250 /ug (Negative); Mucus,Urine FEW /hpf; Nitrate,Urine POS (Negative); Protein,Urine 30 mg/dL (Negative); Specific Gravity,Urine 1.017 (1.000-1.035); Urine RBC 108 /hpf (0-3); Urine Squamous Epithelial Cell 1 /hpf (0-4); Urine Transitional Epi Cells < 1 /hpf (0-2); Urine WBC > 182 /hpf (0-4); Urobilinogen,Urine Negative
[2020-12-31] MEDS ORDERED: HYDROmorphone 0.5 MG/0.5 ML SYRINGE IV ONE ×2 (02:11→04:19)
[2020-12-31] MEDS ORDERED: cefTRIAXone 1 GM VIAL IV ONE (02:51)
[2020-12-31] MEDS ORDERED: ACETAMINOPHEN 325 MG TABLET PO ONE (04:19)
--- NOTE | 2020-12-31 05:22 | General Surgery Consult Note ---
HPI Data of Consult Consult date: 12/31/20 Primary Care Provider: Pancho Bal MD Consult Narrative Chief complaint: sepsis with right UPJ stone Reason for consult: ER admission with ostructed ureteral stone and UTI History of present illness: Patient is a 60-year-old white female with history of nephrolithiasis now seen in the emergency room with right flank pain fever chills and hydronephrosis on CT imaging. Patient has rising creatinine as well as white blood cell count and findings on urinalysis consistent with UTI and impending sepsis. Patient has had past history of stones and past surgical procedures for same. Patient now admitted for management of present septic episode with approximately 5 to 6 mm stone in the UPJ with likely pyelonephritis proximally. cc:: CC: Genitourinary Additional comments: Past history of UTIs and kidney stones with surgery required Hypertension PFSH PFSH All Active Problems (Updated 12/31/20 @ 04:58 by Fazal Clifford MD) Acute flank pain (Acute) UTI (urinary tract infection) (Acute) Ureterolithiasis (Acute) Pancreatitis (Acute) Severe sepsis (Acute) Right foot strain (Acute) Right foot injury (Acute) Dysuria (Acute) Breast disorder (Chronic) Colonic polyp (Chronic) Degeneration of cervical disc without myelopathy (Chronic) Type 2 diabetes mellitus (Chronic ~2010) Gastroesophageal reflux (Chronic) Hyperlipidemia (Chronic) Hypertension, essential (Chronic) Irritable bowel syndrome (Chronic) Menopausal and postmenopausal disorder (Chronic) Osteopenia (Chronic) Spondylosis of cervical spine (Chronic) Vitamin D deficiency (Chronic) CKD (chronic kidney disease), stage III (Chronic) Hypertensive renal disease (Chronic) Calculus of kidney (Chronic) Fibromyalgia (Chronic) Erosive osteoarthritis (Chronic) Dermatitis (Chronic) Chondrocalcinosis (Chronic) Conjunctivitis, left eye (Acute) Chest wall pain (Acute) Right shoulder pain (Acute) Shoulder strain (Acute) 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) Lower extremity edema (Acute) Chronic kidney disease (CKD) stage G2/A1, mildly decreased glomerular filtration rate (GFR) between 60-89 mL/min/1.73 square meter and albuminuria creatinine ratio less than 30 mg/g (Chronic) Right wrist pain (Acute) Strain of wrist, right (Acute) Mild obstructive sleep apnea (Acute) Low back pain (Acute) Sleep disorder, unspecified (Chronic) Obstructive sleep apnea (Chronic) Transaminitis (Acute) CKD (chronic kidney disease) (Acute) Acute adjustment disorder with anxiety (Acute) CKD stage G3a/A1, GFR 45-59 and albumin creatinine ratio <30 mg/g (Acute) Medical History Acute adjustment disorder with anxiety Breast cancer s/p lumpectomy and radiation therapy Breast disorder FCBC Calculus of kidney Chondrocalcinosis Of multiple sites, chronic CKD (chronic kidney disease) CKD (chronic kidney disease), stage III Doubt DM due to lack of proteinuria Same reasons to doubt GN associated with rheumatalogic issue or malignancy HTN is likely and BP is well controlled Closed fracture of toe Colonic polyp Degeneration of cervical disc without myelopathy Dermatitis Dysuria Erosive osteoarthritis Chronic Fibromyalgia Chronic Gastroesophageal reflux Hyperlipidemia Hypertension, essential diagnosed in her 30s Hypertensive renal disease Irritable bowel syndrome Knee sprain Low back pain Menopausal and postmenopausal disorder Mild obstructive sleep apnea Obstructive sleep apnea Osteopenia Right foot injury Right foot strain Sleep disorder, unspecified Spondylosis of cervical spine Lumbar Transaminitis Type 2 diabetes mellitus (~2010) Vitamin D deficiency Surgical History H/O joint replacement hand- [facility] H/O lumpectomy History of arthroscopy of right knee History of breast biopsy History of X3 History of carpal tunnel release R History of hysterectomy L SO History of right knee joint replacement Status post lumbar spinal fusion Family History Father , at 80y Atherosclerosis of coronary artery Diabetes mellitus Essential hypertension affecting in second trimester, antepartum Mother Essential hypertension Cerebrovascular accident Unknown Hyperlipidemia Sister Renal stones Social History marital status: education level: college occupational status: employed occupation: [employer]- [employer] other: 3 Children, 2 Grandchildren alcohol intake frequency: holiday/special occasion only substance use type: does not use MEDS/ALLERGIES Home Medications and Allergies Home Medications Medication Instructions Recorded Confirmed Type blood sugar diagnostic 02/10/15 12/09/20 History lancets 02/10/15 12/09/20 History alpha lipoic acid 50 mg capsule 300 mg PO BID cap 08/02/17 12/09/20 History amitriptyline 10 mg tablet 10 mg PO HS tab 08/02/17 12/09/20 History vitamin B complex 1 tab PO QDAY 08/02/17 12/09/20 History duloxetine 60 mg capsule,delayed 60 mg PO DAILY cap 07/19/18 12/09/20 History release anastrozole 1 mg PO HS 12/20/18 12/09/20 History lorazepam 0.5 mg PO BIDP PRN 07/16/19 12/09/20 History albuterol sulfate 90 mcg/actuation 2 puff INHALATION Q6H PRN #18 g 11/11/19 12/09/20 Rx aerosol inhaler cholecalciferol (vitamin D3) 25 25 mcg PO BID cap 11/26/19 12/09/20 History mcg (1,000 unit) capsule dha-phosphatidylserine See Rx Instructions PO QDAY 11/26/19 12/09/20 History magnesium oxide 400 mg (241.3 mg 400 mg PO QDAY 11/26/19 12/09/20 History magnesium) tablet hydrochlorothiazide 25 mg tablet 25 mg PO QDAY #90 tab 04/06/20 12/09/20 Rx apple cider vinegar 300 mg tablet 300 mg PO BID tab 07/02/20 12/09/20 History methocarbamol 500 mg tablet 500 mg PO TID PRN #30 tab 07/02/20 12/09/20 Rx vitamin E 400 unit capsule 400 unit PO BID 07/27/20 12/09/20 History Liver tone 300 mg PO QDAY 08/17/20 12/09/20 History montelukast 10 mg tablet 10 mg PO QHS #90 tab 08/31/20 12/09/20 Rx cinnamon bark 500 mg capsule 500 mg PO QDAY 11/01/20 12/09/20 History phenylephrine 0.25 %-pramoxine 1 1 applic [place] BID #51 g 11/11/20 12/09/20 Rx %-glycerin-wh.petrolatum rectal cream rosuvastatin 10 mg tablet 10 mg PO HS #60 tab 11/17/20 12/09/20 Rx nitrofurantoin 100 mg PO Q12H 5 Days #10 cap 11/24/20 12/09/20 Rx monohydrate/macrocrystals 100 mg capsule metformin 500 mg tablet 1,000 mg PO BID 90 Days #360 tab 11/25/20 12/09/20 Rx losartan 50 mg tablet 50 mg PO QDAY #90 tab 12/01/20 12/09/20 Rx omeprazole 20 mg capsule,delayed 20 mg PO QDAY #90 cap 12/23/20 Rx release Allergies Allergy/AdvReac Type Severity Reaction Status Date / Time diphenhydramine Allergy Mild Hives Verified 12/30/20 22:11 [From Benadryl] Sulfa (Sulfonamide Allergy Mild Rash Verified 12/30/20 22:11 Antibiotics) midazolam [From Versed] AdvReac Severe Other Verified 12/30/20 22:11 Physical Examination Vital Signs Vital signs: Temp Pulse Resp BP Pulse Ox 102.9 F H 117 H 20 190/103 90 12/31/20 04:22 12/31/20 05:01 12/31/20 04:07 12/31/20 05:01 12/31/20 05:01 General physical appearance General physical exam: moderate distress, obese and other (Patient is somewhat obtunded but arousable) Abdomen Abdomen: Present soft Genitourinary Genitourinary (Female): Present other (Patient was CVA tenderness right side consistent with her stone) Additional Findings Additional exam: Patient is somewhat obtunded secondary to medication likely albeit pending sepsis present Findings consistent with pyelonephritis and obstructive stone right side Results Labs Result diagrams: 12/30/20 22:37 12/30/20 22:37 Labs: Abnormal lab results 12/30/20 12/30/20 12/30/20 Range/Units 22:37 22:37 23:50 Hgb 11.5 L (12.0-15.0) g/dL Hct 35.1 L (36.0-48.0) % VBG Lactic Acid (0.5-2.0) mmol/L BUN 29 H (8-23) mg/dL Creatinine 1.3 H (0.6-1.1) mg/dL Glucose 197 H (70-105) mg/dL Lipase 131 H (7-60) U/L Urine Appearance Cloudy A (Clear) Urine Protein 30 A (Negative) mg/dL Urine Nitrate Pos A (Negative) Ur Leukocyte Esterase 250 A (Negative) /ug Urine RBC 108 H (0-3) /hpf Urine WBC > 182 H (0-4) /hpf Urine Bacteria Few A (0) /hpf Urine Mucus Few A (None) /hpf 12/31/20 Range/Units 04:04 Hgb (12.0-15.0) g/dL Hct (36.0-48.0) % VBG Lactic Acid 3.6 H (0.5-2.0) mmol/L BUN (8-23) mg/dL Creatinine (0.6-1.1) mg/dL Glucose (70-105) mg/dL Lipase (7-60) U/L Urine Appearance (Clear) Urine Protein (Negative) mg/dL Urine Nitrate (Negative) Ur Leukocyte Esterase (Negative) /ug Urine RBC (0-3) /hpf Urine WBC (0-4) /hpf Urine Bacteria (0) /hpf Urine Mucus (None) /hpf Diabetes panel 12/30/20 Range/Units 22:37 Sodium 134 (133-145) mmol/L Potassium 4.2 (3.3-5.1) mmol/L Chloride 96 (96-108) mmol/L Carbon Dioxide 25 (22-30) mmol/L BUN 29 H (8-23) mg/dL Creatinine 1.3 H (0.6-1.1) mg/dL Glucose 197 H (70-105) mg/dL Calcium 9.9 (8.6-10.4) mg/dL AST 21 (<32) U/L ALT 24 (<40) U/L Alkaline Phosphatase 104 (39-117) U/L Total Protein 7.0 (5.9-8.4) gm/dL Albumin 4.2 (3.2-5.2) gm/dL Calcium panel 12/30/20 Range/Units 22:37 Calcium 9.9 (8.6-10.4) mg/dL Albumin 4.2 (3.2-5.2) gm/dL Pituitary panel 12/30/20 Range/Units 22:37 Sodium 134 (133-145) mmol/L Potassium 4.2 (3.3-5.1) mmol/L Chloride 96 (96-108) mmol/L Carbon Dioxide 25 (22-30) mmol/L BUN 29 H (8-23) mg/dL Creatinine 1.3 H (0.6-1.1) mg/dL Glucose 197 H (70-105) mg/dL Calcium 9.9 (8.6-10.4) mg/dL Adrenal panel 12/30/20 Range/Units 22:37 Sodium 134 (133-145) mmol/L Potassium 4.2 (3.3-5.1) mmol/L Chloride 96 (96-108) mmol/L Carbon Dioxide 25 (22-30) mmol/L BUN 29 H (8-23) mg/dL Creatinine 1.3 H (0.6-1.1) mg/dL Glucose 197 H (70-105) mg/dL Calcium 9.9 (8.6-10.4) mg/dL Total Bilirubin 0.5 (0.1-1.0) mg/dL AST 21 (<32) U/L ALT 24 (<40) U/L Alkaline Phosphatase 104 (39-117) U/L Total Protein 7.0 (5.9-8.4) gm/dL Albumin 4.2 (3.2-5.2) gm/dL All other labs normal. A/P Narrative A/P Narrative: Assessment: Patient with obstructing right UPJ stone with hydronephrosis and impending sepsis with UTI Patient does have history of hypertension and atherosclerotic disease as well as past nephrolithiasis requiring surgical intervention Patient will require urgent management with stone pushback and stent placement for decompression of her hydronephrosis and allowing control of her sepsis Plan: Proceed with cystoscopy right ureteral stone pushback and stent placement Secondary likely definitive procedure once sepsis and infection controlled Agree with management with immediate resuscitation and antibiotic coverage empirically with Rocephin Appreciate hospitalist help with overall medical management Patient understands risks and benefits and agrees to plan as outlined with c onsent signed for immediate surgery Time Spent With Patient Time: Total time spent is greater than 50% in coordination of care (as documented) at patient's floor/unit and/or counseling patient:
--- NOTE | 2020-12-31 05:34 | Internal Med History&Physical ---
HPI History of Present Illness Patient information: Note initiated : 12/31/20 at 5:27 am Service Date, if different from initiated Date: [] Patient: Jacquelin Benoit 60 y/o F admitted on for Flank Pain. Chief Complaint: [] History of present illness: Ms. Benoit is a 60 year old who presents with right flank pain that started sometime around supper time, she came to the ED and was found to have a UTI and a right obstructing utereral calculi with right hydronephrosis. The patient had an acute on chronic kidney injury and elevated lactic acid consistent with severe sepsis. Constitutional: positive for fever Eyes: no vision changes or pain Cardiovascular: no chest pain, no palpitations Respiratory: no cough or dyspnea Gastrointestinal: no abdominal pain, no nausea, vomiting, or diarrhea Genitourinary: positive for right flank pain Musculoskeletal: no arthralgia or myalgia Integumentary: no skin lesion or wound Neurological: no focal weakness or numbness Psychiatric: no anxiety or depression Head: Atraumatic, normal inspection. Eyes: normal appearance, no scleral icterus. Neck: full ROM Respiratory: no respiratory distress. Cardiovascular: normal rate and rhythm, S1, S2. GI/Abdominal: soft, nontender, no guarding. : right flank tenderness Extremities: full range of motion, nontender. Neurological: CN II-XII intact, intact motor, intact sensation. Psychiatric: normal mood. Skin: warm, normal color PFSH PFSH All Active Problems (Updated 12/31/20 @ 04:58 by Fazal Clifford MD) Acute flank pain (Acute) UTI (urinary tract infection) (Acute) Ureterolithiasis (Acute) Pancreatitis (Acute) Severe sepsis (Acute) Right foot strain (Acute) Right foot injury (Acute) Dysuria (Acute) Breast disorder (Chronic) Colonic polyp (Chronic) Degeneration of cervical disc without myelopathy (Chronic) Type 2 diabetes mellitus (Chronic ~2010) Gastroesophageal reflux (Chronic) Hyperlipidemia (Chronic) Hypertension, essential (Chronic) Irritable bowel syndrome (Chronic) Menopausal and postmenopausal disorder (Chronic) Osteopenia (Chronic) Spondylosis of cervical spine (Chronic) Vitamin D deficiency (Chronic) CKD (chronic kidney disease), stage III (Chronic) Hypertensive renal disease (Chronic) Calculus of kidney (Chronic) Fibromyalgia (Chronic) Erosive osteoarthritis (Chronic) Dermatitis (Chronic) Chondrocalcinosis (Chronic) Conjunctivitis, left eye (Acute) Chest wall pain (Acute) Right shoulder pain (Acute) Shoulder strain (Acute) 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) Lower extremity edema (Acute) Chronic kidney disease (CKD) stage G2/A1, mildly decreased glomerular filtration rate (GFR) between 60-89 mL/min/1.73 square meter and albuminuria creatinine ratio less than 30 mg/g (Chronic) Right wrist pain (Acute) Strain of wrist, right (Acute) Mild obstructive sleep apnea (Acute) Low back pain (Acute) Sleep disorder, unspecified (Chronic) Obstructive sleep apnea (Chronic) Transaminitis (Acute) CKD (chronic kidney disease) (Acute) Acute adjustment disorder with anxiety (Acute) CKD stage G3a/A1, GFR 45-59 and albumin creatinine ratio <30 mg/g (Acute) Medical History Acute adjustment disorder with anxiety Breast cancer s/p lumpectomy and radiation therapy Breast disorder FCBC Calculus of kidney Chondrocalcinosis Of multiple sites, chronic CKD (chronic kidney disease) CKD (chronic kidney disease), stage III Doubt DM due to lack of proteinuria Same reasons to doubt GN associated with rheumatalogic issue or malignancy HTN is likely and BP is well controlled Closed fracture of toe Colonic polyp Degeneration of cervical disc without myelopathy Dermatitis Dysuria Erosive osteoarthritis Chronic Fibromyalgia Chronic Gastroesophageal reflux Hyperlipidemia Hypertension, essential diagnosed in her 30s Hypertensive renal disease Irritable bowel syndrome Knee sprain Low back pain Menopausal and postmenopausal disorder Mild obstructive sleep apnea Obstructive sleep apnea Osteopenia Right foot injury Right foot strain Sleep disorder, unspecified Spondylosis of cervical spine Lumbar Transaminitis Type 2 diabetes mellitus (~2010) Vitamin D deficiency Surgical History H/O joint replacement hand- [facility] H/O lumpectomy History of arthroscopy of right knee History of breast biopsy History of X3 History of carpal tunnel release R History of hysterectomy L SO History of right knee joint replacement Status post lumbar spinal fusion Family History Father , at 80y Atherosclerosis of coronary artery Diabetes mellitus Essential hypertension affecting in second trimester, antepartum Mother Essential hypertension Cerebrovascular accident Unknown Hyperlipidemia Sister Renal stones Social History marital status: education level: college occupational status: 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: 3 Children, 2 Grandchildren alcohol intake frequency: holiday/special occasion only substance use type: does not use MEDS/ALLERGIES Home Medications and Allergies Home Medications Medication Instructions Recorded Confirmed Type blood sugar diagnostic 02/10/15 12/09/20 History lancets 02/10/15 12/09/20 History alpha lipoic acid 50 mg capsule 300 mg PO BID cap 08/02/17 12/09/20 History amitriptyline 10 mg tablet 10 mg PO HS tab 08/02/17 12/09/20 History vitamin B complex 1 tab PO QDAY 08/02/17 12/09/20 History duloxetine 60 mg capsule,delayed 60 mg PO DAILY cap 07/19/18 12/09/20 History release anastrozole 1 mg PO HS 12/20/18 12/09/20 History lorazepam 0.5 mg PO BIDP PRN 07/16/19 12/09/20 History albuterol sulfate 90 mcg/actuation 2 puff INHALATION Q6H PRN #18 g 11/11/19 12/09/20 Rx aerosol inhaler cholecalciferol (vitamin D3) 25 25 mcg PO BID cap 11/26/19 12/09/20 History mcg (1,000 unit) capsule dha-phosphatidylserine See Rx Instructions PO QDAY 11/26/19 12/09/20 History magnesium oxide 400 mg (241.3 mg 400 mg PO QDAY 11/26/19 12/09/20 History magnesium) tablet hydrochlorothiazide 25 mg tablet 25 mg PO QDAY #90 tab 04/06/20 12/09/20 Rx apple cider vinegar 300 mg tablet 300 mg PO BID tab 07/02/20 12/09/20 History methocarbamol 500 mg tablet 500 mg PO TID PRN #30 tab 07/02/20 12/09/20 Rx vitamin E 400 unit capsule 400 unit PO BID 07/27/20 12/09/20 History Liver tone 300 mg PO QDAY 08/17/20 12/09/20 History montelukast 10 mg tablet 10 mg PO QHS #90 tab 08/31/20 12/09/20 Rx cinnamon bark 500 mg capsule 500 mg PO QDAY 11/01/20 12/09/20 History phenylephrine 0.25 %-pramoxine 1 1 applic [place] BID #51 g 11/11/20 12/09/20 Rx %-glycerin-wh.petrolatum rectal cream rosuvastatin 10 mg tablet 10 mg PO HS #60 tab 11/17/20 12/09/20 Rx nitrofurantoin 100 mg PO Q12H 5 Days #10 cap 11/24/20 12/09/20 Rx monohydrate/macrocrystals 100 mg capsule metformin 500 mg tablet 1,000 mg PO BID 90 Days #360 tab 11/25/20 12/09/20 Rx losartan 50 mg tablet 50 mg PO QDAY #90 tab 12/01/20 12/09/20 Rx omeprazole 20 mg capsule,delayed 20 mg PO QDAY #90 cap 12/23/20 Rx release Allergies Allergy/AdvReac Type Severity Reaction Status Date / Time diphenhydramine Allergy Mild Hives Verified 12/30/20 22:11 [From Benadryl] Sulfa (Sulfonamide Allergy Mild Rash Verified 12/30/20 22:11 Antibiotics) midazolam [From Versed] AdvReac Severe Other Verified 12/30/20 22:11 EXAM Constitutional Vitals: Temp Pulse Resp BP Pulse Ox 102.9 F H 117 H 20 190/103 90 12/31/20 04:22 12/31/20 05:01 12/31/20 04:07 12/31/20 05:01 12/31/20 05:01 DATA Data Completed and Pending Labs: Labs from last 24 hours 12/31/20 12/30/20 12/30/20 04:04 23:50 22:37 WBC RBC Hgb Hct MCV MCH MCHC RDW Plt Count MPV Neut % (Auto) Lymph % (Auto) [place] % (Auto) Eos % (Auto) Baso % (Auto) Lymph # (Auto) [place] # (Auto) Eos # (Auto) Baso # (Auto) Absolute Neutrophils VBG Lactic Acid 3.6 H Sodium 134 Potassium 4.2 Chloride 96 Carbon Dioxide 25 Anion Gap 13.0 BUN 29 H Creatinine 1.3 H GFR Calculation 44 Glucose 197 H Calcium 9.9 Total Bilirubin 0.5 AST 21 ALT 24 Alkaline Phosphatase 104 Total Protein 7.0 Albumin 4.2 Globulin 2.8 Albumin/Globulin Ratio 1.5 Lipase 131 H Urine Color Yellow Urine Appearance Cloudy A Urine pH 6.0 Ur Specific [place] 1.017 Urine Protein 30 A Urine Glucose (UA) Negative Urine Ketones Negative Urine Occult Blood 0.20 Urine Nitrate Pos A Urine Bilirubin Negative Urine Urobilinogen Negative Ur Leukocyte Esterase 250 A Urine RBC 108 H Urine WBC > 182 H Ur Squamous Epith Cells 1 Ur Transition Epith Cell < 1 Urine Bacteria Few A Urine Mucus Few A Ur Culture Indicated? yes 12/30/20 22:37 WBC 9.7 RBC 4.05 Hgb 11.5 L Hct 35.1 L MCV 86.7 MCH 28.4 MCHC 32.8 RDW 13.8 Plt Count 214 MPV 9.7 Neut % (Auto) 70.7 Lymph % (Auto) 21.1 [place] % (Auto) 5.2 Eos % (Auto) 2.8 Baso % (Auto) 0.2 Lymph # (Auto) 2.04 [place] # (Auto) 0.50 Eos # (Auto) 0.27 Baso # (Auto) 0.02 Absolute Neutrophils 6.85 VBG Lactic Acid Sodium Potassium Chloride Carbon Dioxide Anion Gap BUN Creatinine GFR Calculation Glucose Calcium Total Bilirubin AST ALT Alkaline Phosphatase Total Protein Albumin Globulin Albumin/Globulin Ratio Lipase Urine Color Urine Appearance Urine pH Ur Specific [place] Urine Protein Urine Glucose (UA) Urine Ketones Urine Occult Blood Urine Nitrate Urine Bilirubin Urine Urobilinogen Ur Leukocyte Esterase Urine RBC Urine WBC Ur Squamous Epith Cells Ur Transition Epith Cell Urine Bacteria Urine Mucus Ur Culture Indicated? A/P Narrative A/P Narrative: Assessment: 60 year old female with HTN, DM II, CKD III, admitted for severe sepsis secondary to UTI and right ureteral obstructing calculi w/ right hydronephrosis. #Severe sepsis secondary to UTI #Right ureteral obstructing calculi #Right hydronephrosis #Acute on chronic kidney disease injury #Diabetes mellitus type II #Essential hypertension #Obesity Plan -Ceftriaxone 2 gm IV Q24 hrs -IV fluid per sepsis protocol -Repeat lactic acid until downtrending -Urology consulted for early ureteral stent placement -Follow blood and urine cultures -Home medications reconciliation. -Hold home losartan, HCTZ, Metformin. -Avoid nephrotoxic meds. -Lantus and SSI. -Telemetry in PCU. -NPO -DVT ppx: heparin SQ -Code status: Full -Disposition: Time Spent With Patient Time: Total time spent is greater than 50% in coordination of care (as documented) at patient's floor/unit and/or counseling patient:
[2020-12-31] MEDS ORDERED: ONDANSETRON 4 MG/2 ML VIAL ONE (06:21)
[2020-12-31] MEDS ORDERED: KETAMINE 50 MG/ML ML ONE (06:21)
[2020-12-31] MEDS ORDERED: PROPOFOL 200 MG/20 ML VIAL IV ONE (06:21)
[2020-12-31] MEDS ORDERED: DEXAMETHASONE 10 MG/ML VIAL ONE (06:21)
[2020-12-31] MEDS ORDERED: LIDOCAINE HCL/PF 100 MG/5 ML SYRINGE IV ONE (06:21)
[2020-12-31] MEDS ORDERED: MEPERIDINE 25 MG/ML VIAL IV PRN (06:41)
[2020-12-31] MEDS ORDERED: ePHEDrine 50 MG/ML AMPUL IV PRN (06:41)
[2020-12-31] MEDS ORDERED: ATROPINE SULFATE 0.4 MG/ML VIAL IV PRN (06:41)
[2020-12-31] MEDS ORDERED: NALOXONE HCL 0.4 MG/ML VIAL IV PRN (06:41)
[2020-12-31] MEDS ORDERED: IPRATROPIUM/ALBUTEROL 3 ML AMPUL.NEB NEB PRN (06:41)
[2020-12-31] MEDS ORDERED: fentaNYL 100 MCG/2 ML VIAL IV PRN (06:41)
[2020-12-31] MEDS ORDERED: METHOCARBAMOL 1,000 MG/10 ML VIAL IV PRN (06:41)
[2020-12-31] MEDS ORDERED: METOPROLOL TARTRATE 5 MG/5 ML VIAL IV PRN (06:41)
[2020-12-31] MEDS ORDERED: LACTATED RINGERS 1,000 ML IV SCH (06:45)
--- NOTE | 2020-12-31 06:46 | Operative Note ---
Operative Note Operative Note: Operation report: Date of service 31 Dec 2020 Preop diagnosis: Sepsis with right hydronephrosis and right UPJ stone obstructing Postop diagnosis: Same Operation performed: Right ureteral stone pushback with stent placement Additional procedure: Fluoroscopy Surgeon: Dr. Chris Ortiz Anesthesia: BUSHRA [place] type General Drains: 7 x 24 cm double-J stent with no suture per urethra Specimens: None Description: After adequate induction of general anesthesia patient had prepping and draping in the dorsolithotomy position. A timeout was performed and patient had cystoscopy performed with bladder showing no anomalies and no reflux in the right ureteral orifice. Patient had a 3 Glidewire passed up under fluoroscopic control into the right renal pelvis region with nephrogram demonstrated on fluoroscopy demonstrating persistent ureteral obstruction. A 7 x 24 cm double-J stent was passed over the guidewire under fluoroscopic control and guidewire was removed with copious reflux of pustular appearing urine consistent with outlet obstruction relief. Patient had bladder drained and after reconfirming position the stent fluoroscopically and cystoscopically patient was returned to recovery area in stable condition having tolerated procedure well. Patient will have secondary procedure once sepsis and infection under control.
[2020-12-31] MEDS ORDERED: IPRATROPIUM/ALBUTEROL 3 ML AMPUL.NEB NEB ONE (06:54)
--- NOTE | 2020-12-31 06:55 | Cat Scan Report ---
CLINICAL INFORMATION: Right upper quadrant pain. History of breast cancer COMPARISON: Noncontrast abdomen and pelvic CT 01/18/2008 TECHNIQUE: Following enteric contrast, 80 cc of Isovue-370 were injected intravenously, and 60 seconds later, 0.625 mm helical slices were obtained from the mid heart through the subtrochanteric regions. Following reconstruction, 2.5 mm sagittal, coronal and axial reformatted images were processed and reviewed at bone, lung and soft tissue windows. Five minutes later, 0.625 mm helical slices were obtained from the mid heart through the kidneys and viewed at soft tissue windows.The exam was performed using radiation dose optimization techniques including, but not limited to, automated exposure control, adjustment of the mA and/or kV according to patient size and use of iterative reconstruction technique. FINDINGS: Lung bases show the lungs are clear. There are no effusions. The heart is mildly enlarged with a small pericardial effusion. Abdominal images show minimal fatty change within the liver. On the previous 2007 study, the liver was enlarged but has returned to normal size. No focal hepatic lesions. Gallbladder and bile ducts, both adrenal glands, spleen, pancreas and aorta, including aortic branches, are normal in size, configuration and attenuation without focal lesion. A 7 mm stone, in the right UPJ, results in moderate right hydronephrosis and perinephric edema. 7 mm nonobstructing stone is present within a inferior left calyx. There is no free air, free fluid or adenopathy.. Mild mesenteric misting in the upper abdomen has actually decreased from the 2007 study and is almost certainly insignificant Through the pelvis show hysterectomy. The ovaries are not identified and, presumably, surgically absent or atrophic. Urinary bladder is normal. Few sigmoid diverticuli appreciated. The remaining large bowel and appendix region are normal. There is mild apparent thickening of the wall and plicae circular of the descending and transverse duodenum which is likely artifact due to underdistention. The remaining small bowel is unremarkable. Bone windows show L5-S1 anterior/posterior fusion and wide laminectomy and there is 5 mm of anterior subluxation. Mild postsurgical post granulation soft tissue there are no other osseous abnormalities. A 2.5 cm fluid collection in the inferior 6:00 right breast is compatible prior lumpectomy. IMPRESSION: 1. 7 mm stone in the right UPJ resulting in moderate right hydronephrosis and perinephric edema. 2. 7 mm nonobstructing stone-inferior calyx left kidney. 3. 2.5 cm fluid collection in the lumpectomy scar deep in the 6:[address] evidence of recurrent breast carcinoma metastases or adenopathy. 4. Small pericardial effusion-chronicity unknown. 5. Mild fatty change within the liver. The liver has returned to normal size demonstrating enlargement on the 2007 exam. Please correlate with LFTs. Interpreted and Authenticated by: Lambert Simon 12/31/20
--- NOTE | 2020-12-31 07:06 | XRay Report ---
CLINICAL INFORMATION: right retrograde pyelogram COMPARISON: None. FINDINGS: Single digital image from the OR shows the proximal end of a double pigtail ureteral stent overlying the right renal pelvis. The known 7 mm stone, seen on recent CT, is not definitely seen and may been removed. Total fluoroscopy time 10 seconds IMPRESSION: Right ureteral stent overlying the right renal pelvis. Stone not identified. Interpreted and Authenticated by: Lambert Simon 12/31/20
[2020-12-31] MEDS ORDERED: SENNOSIDES 1 TABLET PO PRN (08:12)
[2020-12-31] MEDS ORDERED: ONDANSETRON 4 MG/2 ML VIAL IV PRN (08:12)
[2020-12-31] MEDS ORDERED: HYDROmorphone 0.5 MG/0.5 ML SYRINGE IV PRN (08:12)
[2020-12-31] MEDS ORDERED: DEXTROSE 31 GM ORAL.SUSP PO PRN (08:12)
[2020-12-31] MEDS ORDERED: ACETAMINOPHEN 325 MG TABLET PO PRN (08:12)
[2020-12-31] MEDS ORDERED: DEXTROSE 50% 50 ML VIAL IV PRN (08:12)
[2020-12-31] MEDS ORDERED: LACTULOSE 20 GM/30 ML ORAL.SOL PO PRN (08:12)
[2020-12-31] MEDS ORDERED: cefTRIAXone 2 GM in DEXTROSE 5% IN WATER 50 ML IV SCH ×2 (08:12→13:00)
[2020-12-31] MEDS: 0.45 % SODIUM CHLORIDE 1,000 ML IV SCH ×2 (08:24→18:40)
--- NOTE | 2020-12-31 08:51 | XRay Report ---
CLINICAL INFORMATION: post op COMPARISON: 04/24/2013 FINDINGS: Heart size accentuated by portable technique and suboptimal inspiratory result. Is within normal limits. Mediastinum and pulmonary vasculature are unremarkable. Lungs are clear. No effusions. IMPRESSION: Negative Interpreted and Authenticated by: Lambert Simon 12/31/20
[2020-12-31] MEDS ORDERED: LACTATED RINGERS 1,000 ML IV ONE (09:15)
[2020-12-31] MEDS: 0.9 % SODIUM CHLORIDE 10 ML SYRINGE IV SCH ×3 (09:42→21:35)
[2020-12-31] MEDS: INSULIN LISPRO 1 UNIT/0.01 ML UNIT SQ SCH ×4 (09:42→19:57)
[2020-12-31 09:49] LABS: ALT/SGPT 25 U/L (<40); AST/SGOT 27 U/L (<32); Albumin 3.6 gm/dL (3.2-5.2); Albumin/Globulin Ratio 1.5 (1.0-2.3); Alkaline Phosphatase 112 U/L (39-117); Bilirubin,Direct < 0.2 mg/dL (0-0.3); Bilirubin,Total 0.5 mg/dL (0.1-1.0); Blood Urea Nitrogen 33 mg/dL (8-23); Calcium 8.5 mg/dL (8.6-10.4); Carbon Dioxide 19 mmol/L (22-30); Chloride 99 mmol/L (96-108); Globulin 2.4 gm/dL (2.2-3.7); Glomerular Filtration Rate 37; Glucose 213 mg/dL (70-105); Lactate Dehydrogenase 198 U/L (135-225); Triglycerides 92 mg/dL (<150); Uric Acid 7.8 mg/dL (2.5-8.0)
[2020-12-31] MEDS: HYDROcodone/APAP 5/325MG TABLET PO PRN ×3 (09:59→18:30)
[2020-12-31] MEDS: INSULIN GLARGINE, HUMAN 1 UNIT/0.01 ML SQ SCH (10:51)
[2020-12-31] MEDS: DOCUSATE SODIUM 100 MG CAPSULE PO SCH ×2 (11:09→21:30)
[2020-12-31] MEDS: HEPARIN 5,000 UNIT/ML VIAL SQ SCH ×2 (11:09→21:30)
[2020-12-31] MEDS ORDERED: VANCOMYCIN PER PHARMACY IV SCH (12:41)
[2020-12-31] MEDS: CEFEPIME 2 GM VIAL IV SCH ×2 (12:57→21:30)
[2020-12-31] MEDS ORDERED: VANCOMYCIN 1,000 MG in 0.9 % SODIUM CHLORIDE 250 ML IV ONE (13:00)
[2020-12-31] MEDS ORDERED: MAGNESIUM SULFATE 2 GM/50 ML BAG IV ONE (14:25)
[2020-12-31] MEDS: 0.9 % SODIUM CHLORIDE 1,000 ML IV SCH ×2 (15:47→21:35)
[2020-12-31] MEDS ORDERED: NON FORMULARY MEDICATION 1 DOSE MISCELL PO SCH (21:00)
[2020-12-31] MEDS ORDERED: 0.9 % SODIUM CHLORIDE 1,000 ML IV SCH (21:25)
[2020-12-31] MEDS ORDERED: AMITRIPTYLINE 10 MG TABLET PO ONE (22:23)
[2021-01-01] MEDS: 0.9 % SODIUM CHLORIDE 10 ML SYRINGE IV SCH ×3 (05:00→22:17)
[2021-01-01] MEDS ORDERED: OMEPRAZOLE 20 MG CAPSULE PO SCH ×2 (07:30)
[2021-01-01] MEDS: HYDROcodone/APAP 5/325MG TABLET PO PRN ×2 (07:32→22:16)
--- NOTE | 2021-01-01 07:46 | EKG ---
[facility] Test Date: 2021-01-01 Pat Name: Jacquelin Benoit Department: ICU Room: 120A Gender: Female [employer] System: : 1960 Requested By: Solitario Field Order Number: [id number] Reading MD: Reinaldo Ching M.D. Measurements Intervals [place] Rate: 73 P: 44 FL: 176 QRS: 16 QRSD: 94 T: 22 QT: 432 QTc: 476 Interpretive Statements SINUS RHYTHM Since 12-31-20 0739 absent RBBB, decreased rate Electronically Signed On 01-03-2021 12:05:52 PDT by Reinaldo Ching M.D. /store/M0/[id number]
[2021-01-01] MEDS ORDERED: ALBUTEROL SULFATE 200 PUFF INHALER INH PRN ×2 (07:58→13:28)
[2021-01-01] MEDS ORDERED: METHOCARBAMOL 500 MG TABLET PO PRN (07:58)
[2021-01-01 07:59] LABS: Hematocrit 31.3 % (36.0-48.0); Hemoglobin 9.7 g/dL (12.0-15.0); Mean Cell Volume 91.8 fL (80.0-100.0); Mean Platelet Volume 10.3 fL (7.4-10.4); Platelet Count 139 K/mcL (140-440); RBC 3.41 M/mcL (4.00-5.20); Red Cell Distribution Width 14.6 % (11.5-14.5); WBC 20.7 K/mcL (4.5-11.0)
[2021-01-01 08:04] LABS: Vancomycin,Random 5.5 ug/mL
[2021-01-01] MEDS: INSULIN LISPRO 1 UNIT/0.01 ML UNIT SQ SCH ×4 (08:06→22:15)
[2021-01-01] MEDS ORDERED: LORazepam 0.5 MG TABLET PO PRN ×2 (08:13→13:28)
[2021-01-01 08:24] LABS: ALT/SGPT 21 U/L (<40); AST/SGOT 24 U/L (<32); Albumin 3.4 gm/dL (3.2-5.2); Albumin/Globulin Ratio 1.2 (1.0-2.3); Alkaline Phosphatase 73 U/L (39-117); Bilirubin,Direct < 0.2 mg/dL (0-0.3); Bilirubin,Total 0.4 mg/dL (0.1-1.0); Blood Urea Nitrogen 34 mg/dL (8-23); Calcium 8.3 mg/dL (8.6-10.4); Carbon Dioxide 21 mmol/L (22-30); Chloride 104 mmol/L (96-108); Globulin 2.8 gm/dL (2.2-3.7); Glomerular Filtration Rate 53; Glucose 174 mg/dL (70-105); Lactate Dehydrogenase 211 U/L (135-225); Phosphorous 3.7 mg/dL (2.5-4.5); Triglycerides 125 mg/dL (<150); Uric Acid 6.5 mg/dL (2.5-8.0)
[2021-01-01] MEDS: DOCUSATE SODIUM 100 MG CAPSULE PO SCH ×2 (08:55→22:16)
[2021-01-01] MEDS: CEFEPIME 2 GM VIAL IV SCH (08:59)
[2021-01-01] MEDS ORDERED: VANCOMYCIN 1,000 MG in 0.9 % SODIUM CHLORIDE 250 ML IV SCH (09:00)
[2021-01-01] MEDS ORDERED: DULoxetine 30 MG CAPSULE PO SCH (09:00)
[2021-01-01 09:05] LABS: Band Neutrophils % 30 % (0-10); Lymphocytes % 8 % (15-49); Metamyelocytes % 7 %; Monocytes % (Manual) 2 % (1-12); Platelet Estimate NORMAL (Normal); RBC Morphology NORMAL (Normal); Segmented Neutrophils % 53 % (38-78)
[2021-01-01] MEDS: HEPARIN 5,000 UNIT/ML VIAL SQ SCH ×2 (09:41→22:15)
[2021-01-01] MEDS: INSULIN GLARGINE, HUMAN 1 UNIT/0.01 ML SQ SCH (09:41)
--- NOTE | 2021-01-01 11:50 | General Surgery Progress Note ---
SUBJECTIVE Subjective Patient information: Note initiated : 01/01/21 at 11:48 am Service Date, if different from initiated Date: [] Patient: Jacquelin Benoit 61 y/o F admitted on 12/31/20 for Flank Pain. Chief Complaint: [] Constitutional Vitals: Vital Signs Temp Pulse Resp BP Pulse Ox 97.6 F 78 24 H 119/79 98 01/01/21 08:01 01/01/21 08:01 01/01/21 08:01 01/01/21 08:01 01/01/21 08:01 Period Temp Pulse Resp BP Sys/Herbert Pulse Ox Last 24 Hr 97.2 F-98.1 F 70-101 14-25 93-119/63-81 93-98 Intake and Output 12/31/20 01/01/21 01/01/21 21:59 05:59 13:59 Intake Total 1667 Output Total 575 750 700 Balance 1092 -750 -700 Weight 169 lb 14.4 oz Intake & Output: Intake & Output 12/31/20 01/01/21 01/01/21 21:59 05:59 13:59 Intake Total 1667 Output Total 575 750 700 Balance 1092 -750 -700 Weight 169 lb 14.4 oz Intake: IV 1667 Sodium Chloride 0.45% 1,000 ml 500 @ 125 mls/hr IV .Q8H [facility] Rx#: [id number] Sodium Chloride 0.9% 1,000 ml @ 867 150 mls/hr IV .Q6H40M [facility] Rx#: [id number] Vancomycin 1,000 mg In Sodium 250 Chloride 0.9% 250 ml @ 250 mls/ hr IV ONCE ONE Rx#:[id number] Output: Void Amount 575 750 700 Other: Meal Breakfast Percent of Meal Consumed 100% Feeding Ability Independent Urine Appearance Clear Clear Urine Color Bright Yellow Dark Yellow Bright Yellow Urine Odor Normal Normal A/P Time Spent With Patient Time: Total time spent is greater than 50% in coordination of care (as documented) at patient's floor/unit and/or counseling patient:
--- NOTE | 2021-01-01 11:59 | General Surgery Progress Note ---
SUBJECTIVE Subjective Patient information: Note initiated : 01/01/21 at 11:55 am Service Date, if different from initiated Date: [] Patient: Jacquelin Benoit 61 y/o F admitted on 12/31/20 for Flank Pain. Chief Complaint: [] Principal diagnosis: Right pyelonephritis with sepsis Interval history: Patient continues to improve with increased oral intake and alertness She has been out of bed and is having less abdominal and flank discomfort Constitutional Vitals: Vital Signs Temp Pulse Resp BP Pulse Ox 97.6 F 78 24 H 119/79 98 01/01/21 08:01 01/01/21 08:01 01/01/21 08:01 01/01/21 08:01 01/01/21 08:01 Period Temp Pulse Resp BP Sys/Herbert Pulse Ox Last 24 Hr 97.2 F-98.1 F 70-101 14-25 93-119/63-81 93-98 Intake and Output 12/31/20 01/01/21 01/01/21 21:59 05:59 13:59 Intake Total 1667 Output Total 575 750 700 Balance 1092 -750 -700 Weight 169 lb 14.4 oz Intake & Output: Intake & Output 12/31/20 01/01/21 01/01/21 21:59 05:59 13:59 Intake Total 1667 Output Total 575 750 700 Balance 1092 -750 -700 Weight 169 lb 14.4 oz Intake: IV 1667 Sodium Chloride 0.45% 1,000 ml 500 @ 125 mls/hr IV .Q8H [facility]YANN Rx#: [id number] Sodium Chloride 0.9% 1,000 ml @ 867 150 mls/hr IV .Q6H40M [facility] Rx#: [id number] Vancomycin 1,000 mg In Sodium 250 Chloride 0.9% 250 ml @ 250 mls/ hr IV ONCE ONE Rx#:[id number] Output: Void Amount 575 750 700 Other: Meal Breakfast Percent of Meal Consumed 100% Feeding Ability Independent Urine Appearance Clear Clear Urine Color Bright Yellow Dark Yellow Bright Yellow Urine Odor Normal Normal Additional findings Additional findings: Patient alert oriented cooperative Vital signs stabilized and afebrile HEENT within normal limits Chest wall expansion normal Mild right CVA tenderness Abdomen no rebound tenderness A/P Narrative A/P Narrative: Assessment: Continues to improve with urosepsis clinically White count elevation more likely reactive but will need to continue close observation Preliminary urine culture consistent with her gram-negative sepsis pending final sensitivity results and identification Blood cultures after admission and antibiotics likely to be nonhelpful Plan: Continue supportive measures and antibiotics pending urine culture results We will continue to monitor and recheck labs in the morning--Home when stabilized and plan 10 to 14 days secondary procedure for stone management with stent in place until that time Time Spent With Patient Time: Total time spent is greater than 50% in coordination of care (as documented) at patient's floor/unit and/or counseling patient:
--- NOTE | 2021-01-01 12:07 | XRay Report ---
CLINICAL INFORMATION: shortness of breath and chest pain COMPARISON: 12/31/2020 FINDINGS: Heart is accentuated by portable technique and suboptimal inspiratory result likely within normal limits. Mediastinum and pulmonary vessels are unremarkable. Lungs are clear. No effusions. IMPRESSION: Negative Interpreted and Authenticated by: Lambert Simon 01/01/21
[2021-01-01] MEDS ORDERED: DEXTROSE 31 GM ORAL.SUSP PO PRN (13:28)
[2021-01-01] MEDS ORDERED: SENNOSIDES 1 TABLET PO PRN (13:28)
[2021-01-01] MEDS ORDERED: ONDANSETRON 4 MG/2 ML VIAL IV PRN (13:28)
[2021-01-01] MEDS ORDERED: DEXTROSE 50% 50 ML VIAL IV PRN (13:28)
[2021-01-01] MEDS: ACETAMINOPHEN 325 MG TABLET PO PRN (14:35)
--- NOTE | 2021-01-01 15:51 | Internal Med Progress Note ---
SUBJECTIVE Subjective Patient information: Note initiated : 01/01/21 at 3:49 pm Service Date, if different from initiated Date: [] Patient: Jacquelin Benoit 61 y/o F admitted on 12/31/20 for Flank Pain. Chief Complaint: [] Principal diagnosis: Right pyelonephritis with sepsis Interval history: Ms. Benoit is a 60 year old who presents with right flank pain that started sometime around supper time, she came to the ED and was found to have a UTI and a right obstructing ureteral calculi with right hydronephrosis. The patient had an acute on chronic kidney injury and elevated lactic acid consistent with severe sepsis. 12/31-sepsis physiology has resolved, increased leukocytosis but otherwise the patient feels better. Improving renal function and good urine output, IV fluid discontinued. Had some right sided chest pain today, EKG unremarkable and troponin normal, chest xray negative. Urine culture growing gram negative bacillus, discontinued Vancomycin IV and continue Cefepime. Transfer to med/surg. Head: Atraumatic, normal inspection. Eyes: normal appearance, no scleral icterus. Neck: full ROM Respiratory: no respiratory distress. Cardiovascular: normal rate and rhythm, S1, S2. GI/Abdominal: soft, nontender, no guarding. Extremities: full range of motion, nontender. Neurological: CN II-XII intact, intact motor, intact sensation. Psychiatric: normal mood. Skin: warm, normal color Constitutional Vitals: Vital Signs Temp Pulse Resp BP Pulse Ox 98.1 F 78 16 103/66 91 01/01/21 13:00 01/01/21 08:01 01/01/21 13:00 01/01/21 13:00 01/01/21 13:00 Period Temp Pulse Resp BP Sys/Herbert Pulse Ox Last 24 Hr 97.2 F-98.1 F 70-93 14-25 99-119/66-81 91-98 Intake and Output 01/01/21 01/01/21 01/01/21 05:59 13:59 21:59 Intake Total 1050 Output Total 750 700 600 Balance -750 350 -600 Intake & Output: Intake & Output 01/01/21 01/01/21 01/01/21 05:59 13:59 21:59 Intake Total 1050 Output Total 750 700 600 Balance -750 350 -600 Intake: IV 1050 Sodium Chloride 0.9% 1,000 ml @ 800 75 mls/hr IV .[id number] [facility] Rx#: [id number] Vancomycin 1,000 mg In Sodium 250 Chloride 0.9% 250 ml @ 250 mls/ hr IV Q24H [facility] Rx#:[id number] Output: Void Amount 750 700 600 Other: Meal Breakfast Percent of Meal Consumed 100% Feeding Ability Independent Urine Appearance Clear Clear Urine Color Dark Yellow Bright Yellow Bright Yellow Urine Odor Normal Normal OBJ DATA Labs CBC & Chem 7: 01/01/21 05:25 01/01/21 05:25 Labs: Abnormal Lab Results 01/01/21 01/01/21 12/31/20 05:25 05:25 08:40 WBC 20.7 H RBC 3.41 L Hgb 9.7 L Hct 31.3 L RDW 14.6 H Plt Count 139 L Band Neutrophils % 30 H Lymphocytes % 8 L VBG Lactic Acid Carbon Dioxide 21 L 19 L Anion Gap 18.0 H BUN 34 H 33 H Creatinine 1.5 H Glucose 174 H 213 H Calcium 8.3 L 8.5 L Magnesium 1.0 L GGT 38 H Lipase Urine Appearance Urine Protein Urine Nitrate Ur Leukocyte Esterase Urine RBC Urine WBC Urine Bacteria Urine Mucus 12/31/20 12/30/20 12/30/20 04:04 23:50 22:37 WBC RBC Hgb Hct RDW Plt Count Band Neutrophils % Lymphocytes % VBG Lactic Acid 3.6 H Carbon Dioxide Anion Gap BUN 29 H Creatinine 1.3 H Glucose 197 H Calcium Magnesium GGT Lipase 131 H Urine Appearance Cloudy A Urine Protein 30 A Urine Nitrate Pos A Ur Leukocyte Esterase 250 A Urine RBC 108 H Urine WBC > 182 H Urine Bacteria Few A Urine Mucus Few A 12/30/20 22:37 WBC RBC Hgb 11.5 L Hct 35.1 L RDW Plt Count Band Neutrophils % Lymphocytes % VBG Lactic Acid Carbon Dioxide Anion Gap BUN Creatinine Glucose Calcium Magnesium GGT Lipase Urine Appearance Urine Protein Urine Nitrate Ur Leukocyte Esterase Urine RBC Urine WBC Urine Bacteria Urine Mucus Meds: Medications Acetaminophen (Acetaminophen 325 Mg Tablet) 650 mg PO Q6HP PRN; Protocol PRN Reason: Per Pain Protocol/Fever > 101 Last Admin: 01/01/21 14:35 Dose: 650 mg Documented by: Albuterol Sulfate (Albuterol Sulfate 200 Puff Inhaler) 2 puff INH Q6HP PRN PRN Reason: dyspnea Amitriptyline HCl (Amitriptyline 10 Mg Tablet) 10 mg PO HS [facility] Atorvastatin Calcium (Atorvastatin 20 Mg Tablet) 20 mg PO HS [facility] Cefepime HCl (Cefepime 2 Gm Vial) 2 gm IV Q12H RYANN; Protocol Dextrose (Dextrose 50% 50 Ml Vial) 0 ml IV UD PRN PRN Reason: Hypoglycemia Diagnostic Test (Pha) (Accu-Chek 1 Each Strip) 1 each FS ACHS [facility] Docusate Sodium (Docusate Sodium 100 Mg Capsule) 100 mg PO BID [facility] Duloxetine HCl (Duloxetine 30 Mg Capsule) 60 mg PO DAILY [facility] Glucose (Dextrose 31 Gm Oral.Susp) 15 gm PO PRN PRN PRN Reason: Hypoglycemia Heparin Sodium (Porcine) (Heparin 5,000 Unit/Ml Vial) 5,000 unit SQ Q12 [facility] Insulin Glargine (Insulin Glargine, Human 1 Unit/0.01 Ml) 5 unit SQ DAILY [facility] Insulin Human Lispro (Insulin Lispro 1 Unit/0.01 Ml Unit) 0 unit SQ ACHS [facility]ANN; Protocol Lactulose (Lactulose 20 Gm/30 Ml Oral.Janelle) 10 gm PO DAILYP PRN PRN Reason: Constipation Lorazepam (Lorazepam 0.5 Mg Tablet) 0.5 mg PO BIDP PRN PRN Reason: ANXIETY/SEDATION Methocarbamol (Methocarbamol 500 Mg Tablet) 500 mg PO TIDP PRN PRN Reason: muscle pain/tightness Montelukast Sodium (Montelukast 10 Mg Tablet) 10 mg PO QHS [facility] Omeprazole (Omeprazole 20 Mg Capsule) 20 mg PO QAMAC [facility] Ondansetron HCl (Ondansetron 4 Mg/2 Ml Vial) 4 mg IV Q4HP PRN; Protocol PRN Reason: Nausea And Vomiting Anastrozole 1 Mg Tab 1 dose PO QHS [facility] Senna (Sennosides 1 Tablet) 2 tab PO HSP PRN PRN Reason: Constipation Sodium Chloride (0.9 % Sodium Chloride 10 Ml Syringe) 10 ml IV Q8 [facility] Last Admin: 01/01/21 14:36 Dose: 10 ml Documented by: A/P Narrative A/P Narrative: Assessment: 60 year old female with HTN, DM II, CKD III, admitted for severe sepsis secondary to UTI and right ureteral obstructing calculi w/ right hydronephrosis. #Resolving severe sepsis secondary to UTI/pyelonephritis #Right ureteral obstructing calculi s/p double J-stent (12/31) #Acute on chronic kidney disease injury: improving #Diabetes mellitus type II #Essential hypertension #Obesity #Hx of right breast cancer Plan -Cefepime 2 gm IV Q12 hrs (renal dosing) -Discontinue IV fluid. -Follow up with urology for stent and stone removal. -Follow blood and urine cultures -Holding home losartan, HCTZ, Metformin. -Avoid nephrotoxic meds. -Lantus and SSI. -Telemetry in PCU. -NPO -DVT ppx: heparin SQ -Code status: Full -Disposition: home in 1-2 days, urology follow up in about 10 days for definitive stone removal. Time Spent With Patient Time: Total time spent is greater than 50% in coordination of care (as documented) at patient's floor/unit and/or counseling patient: QUALITY VTE Deep Vein Thrombosis/Pulmonary Embolism Present on Admission: No
[2021-01-01] MEDS: METHOCARBAMOL 500 MG TABLET PO PRN (16:11)
[2021-01-01] MEDS ORDERED: ATORVASTATIN 20 MG TABLET PO SCH (21:00)
[2021-01-01] MEDS ORDERED: AMITRIPTYLINE 10 MG TABLET PO SCH (21:00)
[2021-01-01] MEDS ORDERED: ANASTROZOLE 1 MG PO SCH (21:00)
[2021-01-01] MEDS ORDERED: MONTELUKAST 10 MG TABLET PO SCH (21:00)
[2021-01-01] MEDS: AMITRIPTYLINE 10 MG TABLET PO SCH (22:16)
[2021-01-01] MEDS: MONTELUKAST 10 MG TABLET PO SCH (22:16)
[2021-01-01] MEDS: LACTULOSE 20 GM/30 ML ORAL.SOL PO PRN (22:16)
[2021-01-01] MEDS: ATORVASTATIN 20 MG TABLET PO SCH (22:16)
[2021-01-02] MEDS: ACETAMINOPHEN 325 MG TABLET PO PRN ×3 (00:32→21:20)
[2021-01-02] MEDS: HYDROcodone/APAP 5/325MG TABLET PO PRN (04:43)
[2021-01-02] MEDS: 0.9 % SODIUM CHLORIDE 10 ML SYRINGE IV SCH ×3 (04:44→21:29)
[2021-01-02] MEDS: INSULIN LISPRO 1 UNIT/0.01 ML UNIT SQ SCH ×4 (07:25→21:21)
[2021-01-02] MEDS: OMEPRAZOLE 20 MG CAPSULE PO SCH (07:25)
[2021-01-02 07:44] LABS: Hematocrit 29.3 % (36.0-48.0); Hemoglobin 9.3 g/dL (12.0-15.0); Mean Cell Volume 90.4 fL (80.0-100.0); Mean Corpuscular HGB Conc 31.7 g/dL (31.0-36.0); Mean Platelet Volume 10.4 fL (7.4-10.4); Platelet Count 144 K/mcL (140-440); RBC 3.24 M/mcL (4.00-5.20); Red Cell Distribution Width 14.5 % (11.5-14.5); WBC 16.1 K/mcL (4.5-11.0)
[2021-01-02 08:00] LABS: ALT/SGPT 19 U/L (<40); AST/SGOT 18 U/L (<32); Albumin 3.2 gm/dL (3.2-5.2); Albumin/Globulin Ratio 1.2 (1.0-2.3); Alkaline Phosphatase 108 U/L (39-117); Bilirubin,Total 0.5 mg/dL (0.1-1.0); Blood Urea Nitrogen 29 mg/dL (8-23); Calcium 8.5 mg/dL (8.6-10.4); Carbon Dioxide 23 mmol/L (22-30); Chloride 105 mmol/L (96-108); Globulin 2.6 gm/dL (2.2-3.7); Glomerular Filtration Rate 68; Glucose 115 mg/dL (70-105)
[2021-01-02 08:27] LABS: Band Neutrophils % 20 % (0-10); Eosinophils % (Manual) 3 % (0-7); Lymphocytes % 14 % (15-49); Monocytes % (Manual) 4 % (1-12); Platelet Estimate NORMAL (Normal); RBC Morphology NORMAL (Normal); Segmented Neutrophils % 59 % (38-78)
[2021-01-02] MEDS: DOCUSATE SODIUM 100 MG CAPSULE PO SCH ×2 (09:27→21:21)
[2021-01-02] MEDS: HEPARIN 5,000 UNIT/ML VIAL SQ SCH ×2 (09:28→21:21)
[2021-01-02] MEDS: DULoxetine 30 MG CAPSULE PO SCH (09:28)
[2021-01-02] MEDS: INSULIN GLARGINE, HUMAN 1 UNIT/0.01 ML SQ SCH (09:31)
[2021-01-02] MEDS: cefTRIAXone 1 GM VIAL IV SCH (09:32)
[2021-01-02] MEDS: LACTULOSE 20 GM/30 ML ORAL.SOL PO PRN (09:46)
--- NOTE | 2021-01-02 11:27 | General Surgery Progress Note ---
SUBJECTIVE Subjective Patient information: Note initiated : 01/02/21 at 11:23 am Service Date, if different from initiated Date: [] Patient: Jacquelin Benoit 61 y/o F admitted on 12/31/20 for Flank Pain. Chief Complaint: [] Principal diagnosis: Right pyelonephritis with sepsis Interval history: Patient much improved today and moved out of icu to pcu continuing on monitoring Pain of neck and shoulder spasm but p.o. well and afebrile--up and ambulating some Constitutional Vitals: Vital Signs Temp Pulse Resp BP Pulse Ox 97.5 F 75 14 131/87 94 01/02/21 07:29 01/02/21 07:29 01/02/21 07:29 01/02/21 07:29 01/02/21 07:29 Period Temp Pulse Resp BP Sys/Herbert Pulse Ox Last 24 Hr 97.5 F-98.6 F 75-92 14-20 103-131/66-87 91-95 Intake and Output 01/01/21 01/02/21 01/02/21 21:59 05:59 13:59 Intake Total 120 100 240 Output Total 1100 1200 300 Balance -980 -1100 -60 Weight 170 lb 8 oz Intake & Output: Intake & Output 01/01/21 01/02/21 01/02/21 21:59 05:59 13:59 Intake Total 120 100 240 Output Total 1100 1200 300 Balance -980 -1100 -60 Weight 170 lb 8 oz Intake: Oral 120 100 240 Output: Void Amount 1100 1200 300 Other: Meal Dinner Breakfast Percent of Meal Consumed 100% 75% Feeding Ability Independent Independent Urine Appearance Sediment Sediment Sediment Urine Color Pale Pale Pale Blood Tinged Urine Odor Normal Normal Additional findings Additional findings: Afebrile vital signs stable some tenderness in the shoulders bilaterally Patient with no new abdominal tenderness and right flank tenderness minimal today A/P Narrative A/P Narrative: Assessment: Continues to improve with some persistent anemia now hemoglobin at 9.7 White blood cell count decreasing now to 16.7 Urine culture demonstrated E. coli with resistance to ampicillin and fluoroquinolones Renal function back to normal creatinine presently Plan: Agree with hospitalist and likely discharge in the next 1 to 2 days pending continued clinical and lab improvement Continue with appropriate by therapy and emphasize increase fluids Conservative management of arthralgias with renal nontoxic agents Time Spent With Patient Time: Total time spent is greater than 50% in coordination of care (as documented) at patient's floor/unit and/or counseling patient:
[2021-01-02] MEDS: METHOCARBAMOL 500 MG TABLET PO PRN (13:33)
--- NOTE | 2021-01-02 15:09 | Internal Med Progress Note ---
SUBJECTIVE Subjective Patient information: Note initiated : 01/02/21 at 3:04 pm Service Date, if different from initiated Date: [] Patient: Jacquelin Benoit 61 y/o F admitted on 12/31/20 for Flank Pain. Chief Complaint: [] Principal diagnosis: Right pyelonephritis with sepsis Interval history: Ms. Benoit is a 60 year old who presents with right flank pain that started sometime around supper time, she came to the ED and was found to have a UTI and a right obstructing ureteral calculi with right hydronephrosis. The patient had an acute on chronic kidney injury and elevated lactic acid consistent with severe sepsis. 12/31-sepsis physiology has resolved, increased leukocytosis but otherwise the patient feels better. Improving renal function and good urine output, IV fluid discontinued. Had some right sided chest pain today, EKG unremarkable and troponin normal, chest xray negative. Urine culture growing gram negative bacillus, discontinued Vancomycin IV and continue Cefepime. Transfer to med/surg. 01/01-urine culture growing E coli sensitive to Ceftriaxone-started Ceftriaxone and discontinued Cefepime. Intermediate sensitivity to Cefazolin, resistant to Unasyn and fluoroquinolones, sensitive to Bactrim. WBC trending down, overall feels much better but has a headache today. Head: Atraumatic, normal inspection. Eyes: normal appearance, no scleral icterus. Neck: full ROM Respiratory: no respiratory distress. Cardiovascular: normal rate and rhythm, S1, S2. GI/Abdominal: soft, nontender, no guarding. Extremities: full range of motion, nontender. Neurological: CN II-XII intact, intact motor, intact sensation. Psychiatric: normal mood. Skin: warm, normal color Constitutional Vitals: Vital Signs Temp Pulse Resp BP Pulse Ox 98.7 F 84 16 136/88 94 01/02/21 11:31 01/02/21 11:31 01/02/21 11:31 01/02/21 11:31 01/02/21 11:31 Period Temp Pulse Resp BP Sys/Herbert Pulse Ox Last 24 Hr 97.5 F-98.7 F 75-92 14-20 111-136/67-88 92-95 Intake and Output 01/02/21 01/02/21 01/02/21 05:59 13:59 21:59 Intake Total 100 240 Output Total 1200 1100 Balance -1100 -860 Weight 77.337 kg Patient Weight 01/03/21 05:59 Weight 77.337 kg Intake & Output: Intake & Output 01/02/21 01/02/21 01/02/21 05:59 13:59 21:59 Intake Total 100 240 Output Total 1200 1100 Balance -1100 -860 Weight 77.337 kg Intake: Oral 100 240 Output: Void Amount 1200 1100 Other: Meal Breakfast Percent of Meal Consumed 75% Feeding Ability Independent Urine Appearance Sediment Sediment Urine Color Pale Pale Urine Odor Normal OBJ DATA Labs CBC & Chem 7: 01/02/21 06:23 01/02/21 06:24 Labs: Abnormal Lab Results 01/02/21 01/02/21 01/01/21 06:24 06:23 05:25 WBC 16.1 H RBC 3.24 L Hgb 9.3 L Hct 29.3 L RDW Plt Count Band Neutrophils % 20 H Lymphocytes % 14 L VBG Lactic Acid Carbon Dioxide 21 L Anion Gap BUN 29 H 34 H Creatinine Glucose 115 H 174 H Calcium 8.5 L 8.3 L Magnesium GGT Total Protein 5.8 L Lipase Urine Appearance Urine Protein Urine Nitrate Ur Leukocyte Esterase Urine RBC Urine WBC Urine Bacteria Urine Mucus 01/01/21 12/31/20 12/31/20 05:25 08:40 04:04 WBC 20.7 H RBC 3.41 L Hgb 9.7 L Hct 31.3 L RDW 14.6 H Plt Count 139 L Band Neutrophils % 30 H Lymphocytes % 8 L VBG Lactic Acid 3.6 H Carbon Dioxide 19 L Anion Gap 18.0 H BUN 33 H Creatinine 1.5 H Glucose 213 H Calcium 8.5 L Magnesium 1.0 L GGT 38 H Total Protein Lipase Urine Appearance Urine Protein Urine Nitrate Ur Leukocyte Esterase Urine RBC Urine WBC Urine Bacteria Urine Mucus 12/30/20 12/30/20 12/30/20 23:50 22:37 22:37 WBC RBC Hgb 11.5 L Hct 35.1 L RDW Plt Count Band Neutrophils % Lymphocytes % VBG Lactic Acid Carbon Dioxide Anion Gap BUN 29 H Creatinine 1.3 H Glucose 197 H Calcium Magnesium GGT Total Protein Lipase 131 H Urine Appearance Cloudy A Urine Protein 30 A Urine Nitrate Pos A Ur Leukocyte Esterase 250 A Urine RBC 108 H Urine WBC > 182 H Urine Bacteria Few A Urine Mucus Few A Meds: Medications Acetaminophen (Acetaminophen 325 Mg Tablet) 650 mg PO Q6HP PRN; Protocol PRN Reason: Per Pain Protocol/Fever > 101 Last Admin: 01/02/21 13:33 Dose: 650 mg Documented by: Hydrocodone Bitart/Acetaminophen (Hydrocodone/Apap 5/325mg Tablet) 1 tab PO Q4HP PRN; Protocol PRN Reason: Per Pain Protocol Last Admin: 01/02/21 04:43 Dose: 1 tab Documented by: Albuterol Sulfate (Albuterol Sulfate 200 Puff Inhaler) 2 puff INH Q6HP PRN PRN Reason: dyspnea Amitriptyline HCl (Amitriptyline 10 Mg Tablet) 10 mg PO HS [facility] Last Admin: 01/01/21 22:16 Dose: 10 mg Documented by: Atorvastatin Calcium (Atorvastatin 20 Mg Tablet) 20 mg PO HS [facility] Last Admin: 01/01/21 22:16 Dose: 20 mg Documented by: Ceftriaxone Sodium (Ceftriaxone 1 Gm Vial) 1 gm IV Q24H [facility]; Protocol Last Admin: 01/02/21 09:32 Dose: 1 gm Documented by: Dextrose (Dextrose 50% 50 Ml Vial) 0 ml IV UD PRN PRN Reason: Hypoglycemia Diagnostic Test (Pha) (Accu-Chek 1 Each Strip) 1 each FS [facility] Last Admin: 01/02/21 13:16 Dose: 1 each Documented by: Docusate Sodium (Docusate Sodium 100 Mg Capsule) 100 mg PO BID [facility] Last Admin: 01/02/21 09:27 Dose: 100 mg Documented by: Duloxetine HCl (Duloxetine 30 Mg Capsule) 60 mg PO DAILY [facility] Last Admin: 01/02/21 09:28 Dose: 60 mg Documented by: Glucose (Dextrose 31 Gm Oral.Susp) 15 gm PO PRN PRN PRN Reason: Hypoglycemia Heparin Sodium (Porcine) (Heparin 5,000 Unit/Ml Vial) 5,000 unit SQ Q12 [facility] Last Admin: 01/02/21 09:28 Dose: 5,000 unit Documented by: Insulin Glargine (Insulin Glargine, Human 1 Unit/0.01 Ml) 5 unit SQ DAILY [facility] Last Admin: 01/02/21 09:31 Dose: 5 units Documented by: Insulin Human Lispro (Insulin Lispro 1 Unit/0.01 Ml Unit) 0 unit SQ [facility]; Protocol Last Admin: 01/02/21 13:16 Dose: Not Given Documented by: Lactulose (Lactulose 20 Gm/30 Ml Oral.Janelle) 10 gm PO DAILYP PRN PRN Reason: Constipation Last Admin: 01/02/21 09:46 Dose: 10 gm Documented by: Lorazepam (Lorazepam 0.5 Mg Tablet) 0.5 mg PO BIDP PRN PRN Reason: ANXIETY/SEDATION Methocarbamol (Methocarbamol 500 Mg Tablet) 500 mg PO TIDP PRN PRN Reason: muscle pain/tightness Last Admin: 01/02/21 13:33 Dose: 500 mg Documented by: Montelukast Sodium (Montelukast 10 Mg Tablet) 10 mg PO QHS [facility] Last Admin: 01/01/21 22:16 Dose: 10 mg Documented by: Omeprazole (Omeprazole 20 Mg Capsule) 20 mg PO [facility] Last Admin: 01/02/21 07:25 Dose: 20 mg Documented by: Ondansetron HCl (Ondansetron 4 Mg/2 Ml Vial) 4 mg IV Q4HP PRN; Protocol PRN Reason: Nausea And Vomiting Anastrozole 1 Mg Tab 1 dose PO QHS [facility] Last Admin: 01/01/21 22:15 Dose: 1 dose Documented by: Senna (Sennosides 1 Tablet) 2 tab PO HSP PRN PRN Reason: Constipation Sodium Chloride (0.9 % Sodium Chloride 10 Ml Syringe) 10 ml IV Q8 [facility] Last Admin: 01/02/21 04:44 Dose: 10 ml Documented by: A/P Narrative A/P Narrative: Assessment: 60 year old female with HTN, DM II, CKD III, admitted for severe sepsis secondary to UTI and right ureteral obstructing calculi w/ right hydronephrosis. #Resolving severe sepsis secondary to UTI/pyelonephritis #Right ureteral obstructing calculi s/p double J-stent (12/31) #Resolved acute on chronic kidney disease injury #Headache #Diabetes mellitus type II #Essential hypertension #Obesity #Hx of right breast cancer Plan -Deescalate to Ceftriaxone, probably discharge on Bactrim vs oral third generation cephalosporin and continue until the patient follows up with urology. -Follow up with urology for stent and stone removal. -Follow blood cultures-NGTD -Holding home losartan, HCTZ, Metformin. -Avoid nephrotoxic meds. -Lantus and SSI. -Telemetry in PCU. -NPO -DVT ppx: heparin SQ -Code status: Full -Disposition: home in 1-2 days, urology follow up in about 10 days for definitive stone removal. Time Spent With Patient Time: Total time spent is greater than 50% in coordination of care (as documented) at patient's floor/unit and/or counseling patient: QUALITY VTE Deep Vein Thrombosis/Pulmonary Embolism Present on Admission: No
[2021-01-02] MEDS ORDERED: CEFEPIME 2 GM VIAL IV SCH (21:00)
[2021-01-02] MEDS: AMITRIPTYLINE 10 MG TABLET PO SCH (21:20)
[2021-01-02] MEDS: MONTELUKAST 10 MG TABLET PO SCH (21:20)
[2021-01-02] MEDS: ATORVASTATIN 20 MG TABLET PO SCH (21:20)
[2021-01-03] MEDS: ACETAMINOPHEN 325 MG TABLET PO PRN ×2 (03:07→07:28)
[2021-01-03] MEDS: 0.9 % SODIUM CHLORIDE 10 ML SYRINGE IV SCH ×3 (06:34→22:23)
[2021-01-03] MEDS: OMEPRAZOLE 20 MG CAPSULE PO SCH (07:28)
[2021-01-03] MEDS: INSULIN LISPRO 1 UNIT/0.01 ML UNIT SQ SCH ×4 (07:31→22:19)
--- NOTE | 2021-01-03 07:36 | General Surgery Progress Note ---
SUBJECTIVE Subjective Patient information: Note initiated : 01/03/21 at 7:32 am Service Date, if different from initiated Date: [] Patient: Jacquelin Benoit 61 y/o F admitted on 12/31/20 for Flank Pain. Chief Complaint: [] Principal diagnosis: Right pyelonephritis with sepsis Interval history: Patient continues to improve with minimal nausea but still some persistent headache Patient has been taking oral intake and up out of bed 2 times yesterday Constitutional Vitals: Vital Signs Temp Pulse Resp BP Pulse Ox 98.1 F 75 20 144/79 97 01/03/21 03:45 01/03/21 03:45 01/03/21 03:45 01/03/21 03:45 01/03/21 03:45 Period Temp Pulse Resp BP Sys/Herbert Pulse Ox Last 24 Hr 97.8 F-98.7 F 75-92 16-20 124-153/74-88 94-97 Intake and Output 01/02/21 01/03/21 01/03/21 21:59 05:59 13:59 Intake Total 1280 Output Total 1025 1000 300 Balance 255 -1000 -300 Weight 173 lb 8 oz Intake & Output: Intake & Output 01/02/21 01/03/21 01/03/21 21:59 05:59 13:59 Intake Total 1280 Output Total 1025 1000 300 Balance 255 -1000 -300 Weight 173 lb 8 oz Intake: Oral 1280 Output: Void Amount 1025 1000 300 Other: Urine Appearance Clear Clear Clear Urine Color Bright Yellow Bright Yellow Bright Yellow Urine Odor Normal Stool Size Moderate Stool Color Brown Stool Consistency Formed Additional findings Additional findings: Nontoxic and afebrile with vital signs stable HEENT within normal limits Back minimal CVA tenderness Normal abdominal discomfort A/P Narrative A/P Narrative: Assessment: Urosepsis continues to improve with overall lessening of constitutional symptoms. Labs still pending Some persistent neck and shoulder pain likely stress and arthritis related but improved Agree with hospitalist evaluation and switch to oral antibiotics as able for outpatient Plan: Discharged when labs and clinical status are reasonable for no return to hospital Plan urologic follow-up as previously indicated We will continue to follow Time Spent With Patient Time: Total time spent is greater than 50% in coordination of care (as documented) at patient's floor/unit and/or counseling patient:
[2021-01-03 07:52] LABS: Hematocrit 31.6 % (36.0-48.0); Hemoglobin 10.1 g/dL (12.0-15.0); Mean Cell Volume 89.3 fL (80.0-100.0); Mean Platelet Volume 10.2 fL (7.4-10.4); Platelet Count 154 K/mcL (140-440); RBC 3.54 M/mcL (4.00-5.20); Red Cell Distribution Width 14.1 % (11.5-14.5)
[2021-01-03 08:35] LABS: ALT/SGPT 17 U/L (<40); AST/SGOT 17 U/L (<32); Albumin 3.1 gm/dL (3.2-5.2); Alkaline Phosphatase 109 U/L (39-117); Bilirubin,Total 0.4 mg/dL (0.1-1.0); Blood Urea Nitrogen 22 mg/dL (8-23); Calcium 9.3 mg/dL (8.6-10.4); Carbon Dioxide 23 mmol/L (22-30); Chloride 104 mmol/L (96-108); Glomerular Filtration Rate 78; Glucose 134 mg/dL (70-105)
[2021-01-03 08:38] LABS: ALT/SGPT 17 U/L (<40); AST/SGOT 16 U/L (<32); Albumin 3.1 gm/dL (3.2-5.2); Alkaline Phosphatase 110 U/L (39-117); Bilirubin,Direct < 0.2 mg/dL (0-0.3); Bilirubin,Total 0.4 mg/dL (0.1-1.0); Blood Urea Nitrogen 22 mg/dL (8-23); Calcium 9.1 mg/dL (8.6-10.4); Carbon Dioxide 23 mmol/L (22-30); Chloride 105 mmol/L (96-108); Globulin 3.2 gm/dL (2.2-3.7); Glomerular Filtration Rate 78; Glucose 131 mg/dL (70-105); Lactate Dehydrogenase 248 U/L (135-225); Phosphorous 3.4 mg/dL (2.5-4.5); Triglycerides 150 mg/dL (<150); Uric Acid 5.9 mg/dL (2.5-8.0)
[2021-01-03] MEDS: HEPARIN 5,000 UNIT/ML VIAL SQ SCH ×2 (08:53→21:30)
[2021-01-03] MEDS: LACTULOSE 20 GM/30 ML ORAL.SOL PO PRN (08:53)
[2021-01-03] MEDS: DULoxetine 30 MG CAPSULE PO SCH (08:53)
[2021-01-03] MEDS: DOCUSATE SODIUM 100 MG CAPSULE PO SCH ×2 (08:53→21:30)
[2021-01-03] MEDS: INSULIN GLARGINE, HUMAN 1 UNIT/0.01 ML SQ SCH (08:54)
[2021-01-03] MEDS: METHOCARBAMOL 500 MG TABLET PO PRN (09:02)
[2021-01-03 09:32] LABS: Band Neutrophils % 13 % (0-10); Eosinophils % (Manual) 1 % (0-7); Lymphocytes % 13 % (15-49); Monocytes % (Manual) 7 % (1-12); Platelet Estimate NORMAL (Normal); Polychromasia FEW (None Seen); RBC Morphology ABNORMAL (Normal); Reactive Lymphocytes 1 % (0-2); Segmented Neutrophils % 65 % (38-78)
[2021-01-03] MEDS: cefTRIAXone 1 GM VIAL IV SCH (10:00)
[2021-01-03] MEDS ORDERED: SODIUM CHLORIDE 0.9% IV ONE (11:08)
[2021-01-03] MEDS ORDERED: [UNRECOGNIZED DRUG - OTHER] IV ONE (11:08)
[2021-01-03] MEDS ORDERED: diphenhydrAMINE 50 MG/ML VIAL IV ONE (11:08)
[2021-01-03] MEDS ORDERED: METOCLOPRAMIDE 10 MG/2 ML VIAL IV ONE (11:08)
[2021-01-03] MEDS ORDERED: DEXAMETHASONE 4 MG/ML VIAL IV ONE (11:08)
[2021-01-03] MEDS: BUTALB/ACETAMINOPHEN/CAFFEINE 1 TABLET PO PRN ×2 (11:37→22:19)
[2021-01-03] MEDS ORDERED: KETOROLAC 15 MG/ML VIAL IV ONE (13:30)
--- NOTE | 2021-01-03 16:15 | Internal Med Progress Note ---
SUBJECTIVE Subjective Patient information: Note initiated : 01/03/21 at 4:12 pm Service Date, if different from initiated Date: [] Patient: Jacquelin Benoit 61 y/o F admitted on 12/31/20 for Flank Pain. Chief Complaint: [] Principal diagnosis: Right pyelonephritis with sepsis Interval history: Ms. Benoit is a 60 year old who presents with right flank pain that started sometime around supper time, she came to the ED and was found to have a UTI and a right obstructing ureteral calculi with right hydronephrosis. The patient had an acute on chronic kidney injury and elevated lactic acid consistent with severe sepsis. 01/01-sepsis physiology has resolved, increased leukocytosis but otherwise the patient feels better. Improving renal function and good urine output, IV fluid discontinued. Had some right sided chest pain today, EKG unremarkable and troponin normal, chest xray negative. Urine culture growing gram negative bacillus, discontinued Vancomycin IV and continue Cefepime. Transfer to med/surg. 01/02-urine culture growing E coli sensitive to Ceftriaxone-started Ceftriaxone and discontinued Cefepime. Intermediate sensitivity to Cefazolin, resistant to Unasyn and fluoroquinolones, sensitive to Bactrim. WBC trending down, overall feels much better but has a headache today. 01/03-sleeping well after headache cocktail, headache seems to have improved as well, probably will discharge tomorrow on a oral third generation cephalosporin with urology follow up. Head: Atraumatic, normal inspection. Eyes: normal appearance, no scleral icterus. Neck: full ROM Respiratory: no respiratory distress. Cardiovascular: normal rate and rhythm, S1, S2. GI/Abdominal: soft, nontender, no guarding. Extremities: full range of motion, nontender. Neurological: CN II-XII intact, intact motor, intact sensation. Psychiatric: normal mood. Skin: warm, normal color Constitutional Vitals: Vital Signs Temp Pulse Resp BP Pulse Ox 98.1 F 72 14 143/79 98 01/03/21 12:00 01/03/21 12:00 01/03/21 12:00 01/03/21 12:00 01/03/21 12:00 Period Temp Pulse Resp BP Sys/Herbert Pulse Ox Last 24 Hr 97.8 F-98.6 F 72-92 14-20 129-153/79-90 95-98 Intake and Output 01/03/21 01/03/21 01/03/21 05:59 13:59 21:59 Intake Total 55 Output Total 1000 1200 Balance -1000 -1145 Intake & Output: Intake & Output 01/03/21 01/03/21 01/03/21 05:59 13:59 21:59 Intake Total 55 Output Total 1000 1200 Balance -1000 -1145 Intake: IV 55 Depacon 500 mg In Sodium 55 Chloride 0.9% 50 ml @ 50 mls/hr IV ONCE ONE Rx#:[id number] Output: Void Amount 1000 1200 Other: Meal Lunch Percent of Meal Consumed 100% Feeding Ability Independent Urine Appearance Clear Clear Urine Color Bright Yellow Light Mendy OBJ DATA Labs CBC & Chem 7: 01/03/21 05:54 01/03/21 05:54 Labs: Abnormal Lab Results 01/03/21 01/03/21 01/03/21 05:54 05:54 05:54 WBC 12.0 H RBC 3.54 L Hgb 10.1 L Hct 31.6 L RDW Plt Count Band Neutrophils % 13 H Lymphocytes % 13 L RBC Morphology Abnormal A Polychromasia Few A Carbon Dioxide BUN Glucose 134 H 131 H Calcium Lactate Dehydrogenase 248 H Total Protein Albumin 3.1 L 3.1 L Triglycerides 150 H 01/02/21 01/02/21 01/01/21 06:24 06:23 05:25 WBC 16.1 H RBC 3.24 L Hgb 9.3 L Hct 29.3 L RDW Plt Count Band Neutrophils % 20 H Lymphocytes % 14 L RBC Morphology Polychromasia Carbon Dioxide 21 L BUN 29 H 34 H Glucose 115 H 174 H Calcium 8.5 L 8.3 L Lactate Dehydrogenase Total Protein 5.8 L Albumin Triglycerides 01/01/21 05:25 WBC 20.7 H RBC 3.41 L Hgb 9.7 L Hct 31.3 L RDW 14.6 H Plt Count 139 L Band Neutrophils % 30 H Lymphocytes % 8 L RBC Morphology Polychromasia Carbon Dioxide BUN Glucose Calcium Lactate Dehydrogenase Total Protein Albumin Triglycerides Meds: Medications Acetaminophen (Acetaminophen 325 Mg Tablet) 650 mg PO Q6HP PRN; Protocol PRN Reason: Per Pain Protocol/Fever > 101 Last Admin: 01/03/21 07:28 Dose: 650 mg Documented by: Acetaminophen/Butalbital/Caffeine (Butalb/Acetaminophen/Caffeine 1 Tablet) 1 tab PO Q6HP PRN PRN Reason: Headache Last Admin: 01/03/21 11:37 Dose: 1 tab Documented by: Albuterol Sulfate (Albuterol Sulfate 200 Puff Inhaler) 2 puff INH Q6HP PRN PRN Reason: dyspnea Amitriptyline HCl (Amitriptyline 10 Mg Tablet) 10 mg PO [facility] Last Admin: 01/02/21 21:20 Dose: 10 mg Documented by: Atorvastatin Calcium (Atorvastatin 20 Mg Tablet) 20 mg PO HS [facility] Last Admin: 01/02/21 21:20 Dose: 20 mg Documented by: Ceftriaxone Sodium (Ceftriaxone 1 Gm Vial) 1 gm IV Q24H [facility]; Protocol Last Admin: 01/03/21 10:00 Dose: 1 gm Documented by: Dextrose (Dextrose 50% 50 Ml Vial) 0 ml IV UD PRN PRN Reason: Hypoglycemia Diagnostic Test (Pha) (Accu-Chek 1 Each Strip) 1 each FS [facility] Last Admin: 01/03/21 11:43 Dose: 1 each Documented by: Docusate Sodium (Docusate Sodium 100 Mg Capsule) 100 mg PO BID [facility] Last Admin: 01/03/21 08:53 Dose: 100 mg Documented by: Duloxetine HCl (Duloxetine 30 Mg Capsule) 60 mg PO DAILY [facility] Last Admin: 01/03/21 08:53 Dose: 60 mg Documented by: Glucose (Dextrose 31 Gm Oral.Susp) 15 gm PO PRN PRN PRN Reason: Hypoglycemia Heparin Sodium (Porcine) (Heparin 5,000 Unit/Ml Vial) 5,000 unit SQ Q12 [facility] Last Admin: 01/03/21 08:53 Dose: 5,000 unit Documented by: Insulin Glargine (Insulin Glargine, Human 1 Unit/0.01 Ml) 5 unit SQ DAILY [facility] Last Admin: 01/03/21 08:54 Dose: 5 units Documented by: Insulin Human Lispro (Insulin Lispro 1 Unit/0.01 Ml Unit) 0 unit SQ [facility]; Protocol Last Admin: 01/03/21 12:46 Dose: 4 units Documented by: Lactulose (Lactulose 20 Gm/30 Ml Oral.Janelle) 10 gm PO DAILYP PRN PRN Reason: Constipation Last Admin: 01/03/21 08:53 Dose: 10 gm Documented by: Lorazepam (Lorazepam 0.5 Mg Tablet) 0.5 mg PO BIDP PRN PRN Reason: ANXIETY/SEDATION Methocarbamol (Methocarbamol 500 Mg Tablet) 500 mg PO TIDP PRN PRN Reason: muscle pain/tightness Last Admin: 01/03/21 09:02 Dose: 500 mg Documented by: Montelukast Sodium (Montelukast 10 Mg Tablet) 10 mg PO QHS [facility] Last Admin: 01/02/21 21:20 Dose: 10 mg Documented by: Omeprazole ([facility]ule) [facility] Last Admin: 01/03/21 07:28 Dose: 20 mg Documented by: Ondansetron HCl (Ondansetron 4 Mg/2 Ml Vial) 4 mg IV Q4HP PRN; Protocol PRN Reason: Nausea And Vomiting Anastrozole 1 Mg Tab 1 dose PO QHS [facility] Last Admin: 01/02/21 21:28 Dose: 1 dose Documented by: Senna (Sennosides 1 Tablet) 2 tab PO HSP PRN PRN Reason: Constipation Sodium Chloride (0.9 % Sodium Chloride 10 Ml Syringe) 10 ml IV Q8 [facility] Last Admin: 01/03/21 06:34 Dose: 10 ml Documented by: A/P Narrative A/P Narrative: Assessment: 60 year old female with HTN, DM II, CKD III, admitted for severe sepsis secondary to UTI and right ureteral obstructing calculi w/ right hydronephrosis. #Resolved severe sepsis secondary to UTI/pyelonephritis #Right ureteral obstructing calculi s/p double J-stent (12/31) #Resolved acute on chronic kidney disease injury #Headache #Diabetes mellitus type II #Essential hypertension #Obesity #Hx of right breast cancer Plan -Continue Ceftriaxone, probably with oral third generation cephalosporin and continue until the patient follows up with urology. -Follow up with urology for stent and stone removal. -Follow blood cultures-NGTD -Headache cocktail today -Holding home losartan, HCTZ, Metformin. -Avoid nephrotoxic meds. -Lantus and SSI. -Telemetry in PCU. -NPO -DVT ppx: heparin SQ -Code status: Full -Disposition: home in 1-2 days, urology follow up in about 10 days for definitive stone removal. Time Spent With Patient Time: Total time spent is greater than 50% in coordination of care (as documented) at patient's floor/unit and/or counseling patient: QUALITY VTE Deep Vein Thrombosis/Pulmonary Embolism Present on Admission: No
[2021-01-03] MEDS: MONTELUKAST 10 MG TABLET PO SCH (21:30)
[2021-01-03] MEDS: AMITRIPTYLINE 10 MG TABLET PO SCH (21:30)
[2021-01-03] MEDS: ATORVASTATIN 20 MG TABLET PO SCH (21:30)
[2021-01-04] MEDS: OMEPRAZOLE 20 MG CAPSULE PO SCH (07:05)
[2021-01-04] MEDS: 0.9 % SODIUM CHLORIDE 10 ML SYRINGE IV SCH (07:07)
[2021-01-04 07:33] LABS: Hematocrit 31.9 % (36.0-48.0); Hemoglobin 10.2 g/dL (12.0-15.0); Mean Cell Volume 87.4 fL (80.0-100.0); Mean Platelet Volume 10.3 fL (7.4-10.4); Platelet Count 167 K/mcL (140-440); Red Cell Distribution Width 13.6 % (11.5-14.5); WBC 10.2 K/mcL (4.5-11.0)
--- NOTE | 2021-01-04 07:43 | General Surgery Progress Note ---
SUBJECTIVE Subjective Patient information: Note initiated : 01/04/21 at 7:40 am Service Date, if different from initiated Date: [] Patient: Jacquelin Benoit 61 y/o F admitted on 12/31/20 for Flank Pain. Chief Complaint: [] Principal diagnosis: Right pyelonephritis with sepsis Interval history: Patient continues to improve and now has marked improvement in headache as well as overall intake Constitutional Vitals: Vital Signs Temp Pulse Resp BP Pulse Ox 98.1 F 55 L 16 156/88 95 01/04/21 04:28 01/04/21 04:28 01/04/21 04:28 01/04/21 04:28 01/04/21 04:28 Period Temp Pulse Resp BP Sys/Herbert Pulse Ox Last 24 Hr 97.5 F-98.3 F 50-78 14-16 140-156/69-88 95-98 Intake and Output 01/03/21 01/04/21 01/04/21 21:59 05:59 13:59 Intake Total 240 100 Output Total 1200 650 Balance -960 -550 Weight 171 lb 8 oz Intake & Output: Intake & Output 01/03/21 01/04/21 01/04/21 21:59 05:59 13:59 Intake Total 240 100 Output Total 1200 650 Balance -960 -550 Weight 171 lb 8 oz Intake: Oral 240 100 Output: Void Amount 1200 650 Other: Meal Dinner Percent of Meal Consumed 100% Feeding Ability Independent Urine Appearance Clear Clear Urine Color Pale Dark Yellow Urine Odor Normal # Voids 2 Additional findings Additional findings: Patient remains afebrile vital signs stable and nontoxic Comfortable and tolerating p.o. well Minimal CVA tenderness No abdominal tenderness A/P Narrative A/P Narrative: Assessment: Continues her improvement and resolution of sepsis and vital signs and labs are returned to normal Agree with switch to oral antibiotic regimen and should be able to go home today with increased hydration and activity as tolerated Plan: See back in approximately 2 weeks for more definitive therapy for stone manipulation Patient agrees we will assure hospitalist okay with medical status and discharge Appreciate hospitalist help Time Spent With Patient Time: Total time spent is greater than 50% in coordination of care (as documented) at patient's floor/unit and/or counseling patient:
[2021-01-04] MEDS: INSULIN LISPRO 1 UNIT/0.01 ML UNIT SQ SCH (08:01)
--- NOTE | 2021-01-04 08:22 | Discharge Summary ---
Discharge Provider Provider Patient information: Note initiated : 01/04/21 at 8:20 am Service Date, if different from initiated Date: [] Patient: Jacquelin Benoit 61 y/o F admitted on 12/31/20 for Flank Pain. Chief Complaint: [] Date of admission: 12/31/20 07:41 Discharge date: 01/04/21 Primary care physician: Pancho Bal MD Consults: 12/31/20 Consult to Physician [CONS] Stat Comment: Consulting Provider: Solitario Field Reason For Exam: Physician to Consult 12/31/20 08:12 Consult to Physician [CONS] Stat Comment: Consulting Provider: Jason Ortiz Reason For Exam: Physician to Consult Discharge Meds Discharge Medications Home Medications blood sugar diagnostic 02/10/15 [History Confirmed 12/09/20 Last Taken 12/18/18] lancets 02/10/15 [History Confirmed 12/09/20 Last Taken 12/18/18] alpha lipoic acid 50 mg capsule 300 mg PO BID cap 08/02/17 [History Confirmed 12/31/20 Last Taken 12/30/20 07:00] amitriptyline 10 mg tablet 10 mg PO HS tab 08/02/17 [History Confirmed 12/31/20 Last Taken 12/29/20 21:00] vitamin B complex 1 tab PO QDAY 08/02/17 [History Confirmed 12/31/20 Last Taken 12/29/20 09:00] duloxetine 60 mg capsule,delayed release 60 mg PO DAILY cap 07/19/18 [History Confirmed 12/31/20 Last Taken 12/30/20 07:00] anastrozole 1 mg PO HS 12/20/18 [History Confirmed 12/31/20 Last Taken 12/30/20 21:00] lorazepam 0.5 mg PO BIDP PRN 07/16/19 [History Confirmed 12/31/20 Last Taken Unknown] albuterol sulfate 90 mcg/actuation aerosol inhaler 2 puff INHALATION Q6H PRN #18 g 11/11/19 [Rx Confirmed 12/31/20 Last Taken Unknown] cholecalciferol (vitamin D3) 25 mcg (1,000 unit) capsule 25 mcg PO BID cap 11/26/19 [History Confirmed 12/31/20 Last Taken 12/30/20 07:00] dha-phosphatidylserine 300 mg PO QDAY 11/26/19 [History Confirmed 12/31/20 Last Taken 12/30/20 07:00] magnesium oxide 400 mg (241.3 mg magnesium) tablet 400 mg PO QDAY 11/26/19 [History Confirmed 12/31/20 Last Taken 12/30/20 07:00] hydrochlorothiazide 25 mg tablet 25 mg PO QDAY #90 tab 04/06/20 [Rx Confirmed 12/31/20 Last Taken 12/30/20 07:00] apple cider vinegar 300 mg tablet 300 mg PO BID tab 07/02/20 [History Confirmed 12/31/20 Last Taken 12/30/20 07:00] methocarbamol 500 mg tablet 500 mg PO TID PRN #30 tab 07/02/20 [Rx Confirmed 12/31/20 Last Taken Unknown] vitamin E 400 unit capsule 400 unit PO BID 07/27/20 [History Confirmed 12/31/20 Last Taken 12/30/20 07:00] Liver tone 300 mg PO QDAY 08/17/20 [History Confirmed 12/31/20 Last Taken 12/30/20 07:00] montelukast 10 mg tablet 10 mg PO QHS #90 tab 08/31/20 [Rx Confirmed 12/31/20 Last Taken 12/29/20 21:00] cinnamon bark 500 mg capsule 500 mg PO QDAY 11/01/20 [History Confirmed 12/31/20 Last Taken 12/30/20 07:00] phenylephrine 0.25 %-pramoxine 1 %-glycerin-wh.petrolatum rectal cream 1 applic LA BID #51 g 11/11/20 [Rx Confirmed 12/31/20 Last Taken Unknown] rosuvastatin 10 mg tablet 10 mg PO HS #60 tab 11/17/20 [Rx Confirmed 12/31/20 Last Taken 12/29/20 21:00] metformin 500 mg tablet 1,000 mg PO BID 90 Days #360 tab 11/25/20 [Rx Confirmed 12/31/20 Last Taken 12/30/20 21:00] losartan 50 mg tablet 50 mg PO QDAY #90 tab 12/01/20 [Rx Confirmed 12/31/20 Last Taken 12/30/20 07:00] omeprazole 20 mg capsule,delayed release 20 mg PO QDAY #90 cap 12/23/20 [Rx Confirmed 12/31/20 Last Taken 12/30/20 07:00] cefdinir 300 mg PO BID 10 Days #20 cap 01/04/21 [Rx Last Taken Unknown] COURSE Hospital Course Hospital course: Ms. Benoit is a 60 year old who presents with right flank pain that started sometime around supper time, she came to the ED and was found to have a UTI and a right obstructing ureteral calculi with right hydronephrosis. The patient had an acute on chronic kidney injury and elevated lactic acid consistent with severe sepsis. 01/01-sepsis physiology has resolved, increased leukocytosis but otherwise the patient feels better. Improving renal function and good urine output, IV fluid discontinued. Had some right sided chest pain today, EKG unremarkable and troponin normal, chest xray negative. Urine culture growing gram negative bacillus, discontinued Vancomycin IV and continue Cefepime. Transfer to med/surg. 01/02-urine culture growing E coli sensitive to Ceftriaxone-started Ceftriaxone and discontinued Cefepime. Intermediate sensitivity to Cefazolin, resistant to Unasyn and fluoroquinolones, sensitive to Bactrim. WBC trending down, overall feels much better but has a headache today. 01/03-sleeping well after headache cocktail, headache seems to have improved as well, probably will discharge tomorrow on a oral third generation cephalosporin with urology follow up. 01/04-headache improved, slept better, discharged to home on Cefdinir and urology follow up for ureteral calculi and stent removal. Head: Atraumatic, normal inspection. Eyes: normal appearance, no scleral icterus. Neck: full ROM Respiratory: no respiratory distress. Cardiovascular: normal rate and rhythm, S1, S2. GI/Abdominal: soft, nontender, no guarding. Extremities: full range of motion, nontender. Neurological: CN II-XII intact, intact motor, intact sensation. Psychiatric: normal mood. Skin: warm, normal color Discharge diagnosis: Sepsis secondary to pyelonephritis Secondary discharge diagnosis: Ureteral calculi-obstructing Hydronephrosis Time Spent with Patient Time attestation: Total time spent providing and/or coordinating discharge services: EXAM Constitutional Vitals: Temp Pulse Resp BP Pulse Ox 98.3 F 55 L 16 143/79 97 01/04/21 08:00 01/04/21 08:00 01/04/21 08:00 01/04/21 08:00 01/04/21 08:00 Discharge Data Data Completed and Pending Labs on day of discharge: Labs from last 24 hours 01/04/21 01/04/21 01/03/21 06:15 06:15 05:54 WBC 10.2 RBC 3.65 L Hgb 10.2 L Hct 31.9 L MCV 87.4 MCH 27.9 MCHC 32.0 RDW 13.6 Plt Count 167 MPV 10.3 Seg Neutrophils % Band Neutrophils % Lymphocytes % Monocytes % (Manual) Eosinophils % (Manual) Reactive Lymphocytes Platelet Estimate Pending RBC Morphology Pending Polychromasia Sodium Pending 140 Potassium Pending 4.2 Chloride Pending 104 Carbon Dioxide Pending 23 Anion Gap Pending 13.0 BUN Pending 22 Creatinine Pending 0.8 GFR Calculation Pending 78 Glucose Pending 134 H Uric Acid Pending Calcium Pending 9.3 Phosphorus Pending Magnesium Pending Total Bilirubin Pending 0.4 Direct Bilirubin Pending GGT Pending AST Pending 17 ALT Pending 17 Alkaline Phosphatase Pending 109 Lactate Dehydrogenase Pending Total Protein Pending 6.1 Albumin Pending 3.1 L Globulin Pending 3.0 Albumin/Globulin Ratio Pending 1.0 Triglycerides Pending 01/03/21 01/03/21 05:54 05:54 WBC RBC Hgb Hct MCV MCH MCHC RDW Plt Count MPV Seg Neutrophils % 65 Band Neutrophils % 13 H Lymphocytes % 13 L Monocytes % (Manual) 7 Eosinophils % (Manual) 1 Reactive Lymphocytes 1 Platelet Estimate Normal RBC Morphology Abnormal A Polychromasia Few A Sodium 139 Potassium 4.1 Chloride 105 Carbon Dioxide 23 Anion Gap 11.0 BUN 22 Creatinine 0.8 GFR Calculation 78 Glucose 131 H Uric Acid 5.9 Calcium 9.1 Phosphorus 3.4 Magnesium 1.6 Total Bilirubin 0.4 Direct Bilirubin < 0.2 GGT 33 AST 16 ALT 17 Alkaline Phosphatase 110 Lactate Dehydrogenase 248 H Total Protein 6.3 Albumin 3.1 L Globulin 3.2 Albumin/Globulin Ratio 1.0 Triglycerides 150 H Preliminary micro results at discharge 12/31/20 08:41 Blood Culture - Preliminary Blood 12/31/20 08:41 Blood Culture - Preliminary Blood Discharge Plan Patient/Caregiver Discharge Instructions Activity: increase activity as tolerated Prescriptions: New cefdinir 300 mg capsule 300 mg PO BID 10 Days Qty: 20 RF: 0 Continued albuterol sulfate [Ventolin HFA] 90 mcg/actuation HFA aerosol inhaler 2 puff inhalation Q6H PRN (Reason: dyspnea) Qty: 18 RF: 5 hydrochlorothiazide 25 mg tablet 25 mg PO QDAY Qty: 90 RF: 1 montelukast [Singulair] 10 mg tablet 10 mg PO QHS Qty: 90 RF: 1 rosuvastatin [Crestor] 10 mg tablet 10 mg PO HS Qty: 60 RF: 0 metformin 500 mg tablet 1,000 mg PO BID 90 Days Qty: 360 RF: 1 losartan [Cozaar] 50 mg tablet 50 mg PO QDAY Qty: 90 RF: 1 omeprazole 20 mg capsule,delayed release(DR/EC) 20 mg PO QDAY Qty: 90 RF: 1 (DME) blood sugar diagnostic strip See Dose Instructions .ROUTE .MEDSUPPLY RF: 0 (DME) lancets misc See Dose Instructions .ROUTE .MEDSUPPLY RF: 0 duloxetine 60 mg capsule,delayed release(DR/EC) 60 mg PO DAILY RF: 0 cholecalciferol (vitamin D3) 25 mcg (1,000 unit) capsule 25 mcg PO BID RF: 0 magnesium oxide 400 mg (241.3 mg magnesium) tablet 400 mg PO QDAY RF: 0 dha-phosphatidylserine 300 mg PO QDAY RF: 0 Liver tone 300 mg 300 mg PO QDAY RF: 0 apple cider vinegar 300 mg tablet 300 mg PO BID RF: 0 methocarbamol 500 mg tablet 500 mg PO TID PRN (Reason: muscle pain/tightness) Qty: 30 RF: 0 Preparation H Maximum Strength 0.25-1 % cream 1 applic LA BID Qty: 51 RF: 1 alpha lipoic acid 50 mg capsule 300 mg PO BID RF: 0 amitriptyline 10 mg tablet 10 mg PO HS RF: 0 vitamin B complex tablet 1 tab PO QDAY RF: 0 cinnamon bark 500 mg capsule 500 mg PO QDAY RF: 0 vitamin E 400 unit capsule 400 unit PO BID RF: 0 anastrozole 1 MG tablet 1 mg PO HS RF: 0 lorazepam 1 MG tablet 0.5 mg PO BIDP PRN (Reason: anxiety) RF: 0 Follow Up Plan Follow up with: Pancho Bal MD [Primary Care Provider] - Jason Ortiz MD [Physician] - Patient Disposition: Home, Self-Care Prognosis: Serious Discharge Orders: Discharge Order (Routine); Ordered 01/04/21 Ordered By: Solitario Ficek QUALITY VTE Deep Vein Thrombosis/Pulmonary Embolism Present on Admission: No
[2021-01-04 08:34] LABS: ALT/SGPT 17 U/L (<40); AST/SGOT 18 U/L (<32); Albumin 3.3 gm/dL (3.2-5.2); Alkaline Phosphatase 107 U/L (39-117); Bilirubin,Direct < 0.2 mg/dL (0-0.3); Bilirubin,Total 0.3 mg/dL (0.1-1.0); Blood Urea Nitrogen 28 mg/dL (8-23); Calcium 9.8 mg/dL (8.6-10.4); Carbon Dioxide 21 mmol/L (22-30); Chloride 104 mmol/L (96-108); Globulin 3.2 gm/dL (2.2-3.7); Glomerular Filtration Rate 78; Glucose 195 mg/dL (70-105); Lactate Dehydrogenase 255 U/L (135-225); Triglycerides 161 mg/dL (<150); Uric Acid 5.6 mg/dL (2.5-8.0)
[2021-01-04] MEDS: DOCUSATE SODIUM 100 MG CAPSULE PO SCH (09:30)
[2021-01-04] MEDS: DULoxetine 30 MG CAPSULE PO SCH (09:30)
[2021-01-04] MEDS: INSULIN GLARGINE, HUMAN 1 UNIT/0.01 ML SQ SCH (09:30)
[2021-01-04] MEDS: HEPARIN 5,000 UNIT/ML VIAL SQ SCH (09:31)
[2021-01-04] MEDS: BUTALB/ACETAMINOPHEN/CAFFEINE 1 TABLET PO PRN (10:28)
[2021-01-04] MEDS: cefTRIAXone 1 GM VIAL IV SCH (10:48)
--- NOTE | 2021-01-04 10:50 | EKG ---
[facility] Test Date: 2020-12-31 Pat Name: Jacquelin Benoit Department: ED Room: Gender: Female [employer]: : 1960 Requested By: Fazal Clifford Order Number: [id number] Reading MD: Reinaldo Ching M.D. Measurements Intervals [place] Rate: 125 P: 41 FL: 124 QRS: -24 QRSD: 145 T: 14 QT: 357 QTc: 515 Interpretive Statements Sinus tachycardia Right bundle branch block Baseline wander in lead(s) II No prior tracing for comparison. I reviewed and agree with the above findings. Electronically Signed On 12-31-2020 12:43:16 PDT by Reinaldo Ching M.D. /[facility]/[id number]
[2021-01-04 12:25] LABS: Band Neutrophils % 5 % (0-10); Lymphocytes % 23 % (15-49); Metamyelocytes % 1 %; Monocytes % (Manual) 4 % (1-12); Platelet Estimate NORMAL (Normal); RBC Morphology NORMAL (Normal); Segmented Neutrophils % 67 % (38-78)
[2021-01-04 12:27] LABS: RBC 3.65 M/mcL (4.00-5.20)
== END 2021-01-04 11:30 | disposition home or self-care (01) | DRG 872 ==
LOC: ED 22:08 → SSSU 12-31 06:01 → ICU 12-31 07:41 → MEDSUR 01-01 13:07
PROVIDERS: ADMIT Internal Medicine; ATTEND Urology